=== PATIENT | female | born 1950 | race Caucasian/White ===

== ENCOUNTER 2017-04-24 18:58 | Inpatient (IN) | payer OTHER ==
[2017-04-24] MEDS ORDERED: PIPERACILLIN/TAZO 3.375 GM/DEX 50 ML IV ONE (19:55)
[2017-04-24] MEDS ORDERED: NS 1,000 ML IV ONE (19:58)
--- NOTE | 2017-04-24 19:58 | EDPHY ---
H & P Time Seen by Provider: 04/24/17 19:12 HPI/ROS: CHIEF COMPLAINT: Abnormal CT HISTORY OF PRESENT ILLNESS: Patient is a 66-year-old female who presents to the emergency department with URI type symptoms since February. She has had an ongoing cough. She was treated with a Z-Jakob and completed the course roughly 5 days ago. She states her symptoms did improve after taking the antibiotic but now they are worsening. She has had a fever with chills. She has had night sweats. Patient denies any chest pain. Her cough is nonproductive. No nausea or vomiting. Patient has a remote history of breast cancer in 1999 which require lumpectomy. REVIEW OF SYSTEMS: My complete review of systems is negative except as mentioned in the HPI. Past Medical/Surgical History: Includes breast cancer, migraine, cataracts Past surgical history: Includes abdominal surgery, right hip surgery, lumpectomy, cataract surgery Social history: The patient has a history of smoking cigarettes. Smoking Status: Former smoker Physical Exam: 36.9, 128/77, 81, 16, 94% on room air GENERAL: No acute distress, alert. HEENT: Eyes normal to inspection, normal pharynx, no signs of dehydration. NECK: No thyromegaly, no lymphadenopathy, supple. RESPIRATORY: Decreased breath sounds on the right. No rales or rhonchi. CVS: Regular rate and rhythm, no rubs, murmurs, or gallops. ABDOMEN: Soft, nontender, nondistended, no organomegaly. BACK: Normal to inspection, no CVA tenderness. SKIN: Normal color, no rash, warm, dry. No pallor. EXTREMITIES: No pedal edema, no calf tenderness, no Homans sign or cords, no joint swelling. NEURO/PSYCH: Alert and oriented, normal mood and affect, normal motor sensory exam. Constitutional: Initial Vital Signs Temperature (C) 36.9 C 04/24/17 19:02 Heart Rate 81 04/24/17 19:02 Respiratory Rate 16 04/24/17 19:02 Blood Pressure 128/77 H 04/24/17 19:02 O2 Sat (%) 94 04/24/17 19:02 Allergies/Adverse Reactions: Sulfa (Sulfonamide Antibiotics) Allergy (Verified 04/24/17 19:05) Home Medications: Medication Instructions Recorded Nadolol [Nadolol 20 mg (*)] 40 mg PO HS 07/28/15 Nortriptyline HCl [Pamelor 25 mg 75 mg PO HS 07/28/15 (*)] Acetaminophen [Tylenol 325mg (*)] 650 mg PO Q6 PRN #0 tab 07/30/15 Nicotine [Nicoderm Cq 21 mg (*)] 21 mg TD DAILY #1 box 07/30/15 Herbals/Supplements -Info Only 1 ea PO HS 04/24/17 Medical Decision Making ED Course/Re-evaluation: In the emergency department I reviewed the patient's CT imaging as an outpatient. I discussed the case with Dr. Kuhn. I discussed the findings with the patient. I answered all her questions. IV was placed. Laboratory studies including cultures were obtained. Discussed the case with Dr. Stout who accepted the patient. He recommended the patient be treated with Zosyn. Zosyn was ordered. Patient was given 1 L of normal saline. I discussed the plan with the patient. I answered all of their questions. [place] [address]. Lactic acid was 2.5. Severe sepsis was declared. The patient was given normal saline 30 milliliters/ kilogram IV over 6 hours. Differential Diagnosis: My differential includes but is not limited to pneumonia, empyema, abscess, malignancy, mass, bacteremia, sepsis - Data Points Laboratory Results: Laboratory Results 04/24/17 19:30 04/24/17 19:30 04/24/17 04/24/17 04/24/17 19:30 19:30 19:30 WBC RBC Hgb Hct MCV MCH MCHC RDW Plt Count MPV Neut % (Auto) Lymph % (Auto) Hooker % (Auto) Eos % (Auto) Baso % (Auto) Nucleat RBC Rel Count Absolute Neuts (auto) Absolute Lymphs (auto) Absolute Monos (auto) Absolute Eos (auto) Absolute Basos (auto) Absolute Nucleated RBC Immature Gran % Immature Gran # Platelet Estimate Smear Review By PT 15.0 SEC SEC (12.0-15.0) INR 1.18 H (0.83-1.16) APTT 42.6 SEC H SEC (23.0-38.0) VBG Lactic Acid 2.5 mmol/L H mmol/L (0.7-2.1) Sodium 133 mEq/L L mEq/L (134-144) Potassium 3.9 mEq/L mEq/L (3.5-5.2) Chloride 95 mEq/L L mEq/L (97-110) Carbon Dioxide 22 mEq/l mEq/l (22-31) Anion Gap 16 mEq/L mEq/L (8-16) BUN 12 mg/dL mg/dL (7-23) Creatinine 0.7 mg/dL mg/dL (0.6-1.0) Estimated GFR > 60 Glucose 145 mg/dL H mg/dL (70-100) Calcium 8.9 mg/dL mg/dL (8.5-10.4) Total Bilirubin 0.4 mg/dL mg/dL (0.1-1.4) Conjugated Bilirubin 0.3 mg/dL mg/dL (0.0-0.5) Unconjugated Bilirubin 0.1 mg/dL mg/dL (0.0-1.1) AST 29 IU/L IU/L (14-46) ALT 32 IU/L IU/L (9-52) Alkaline Phosphatase 211 IU/L H IU/L (38-126) Total Protein 6.5 g/dL g/dL (6.3-8.2) Albumin 2.9 g/dL L g/dL (3.5-5.0) 04/24/17 19:30 WBC 31.96 10^3/uL H 10^3/uL (3.80-9.50) RBC 3.42 10^6/uL L 10^6/uL (4.18-5.33) Hgb 10.3 g/dL L g/dL (12.6-16.3) Hct 29.7 % L % (38.0-47.0) MCV 86.8 fL fL (81.5-99.8) MCH 30.1 pg pg (27.9-34.1) MCHC 34.7 g/dL g/dL (32.4-36.7) RDW 13.9 % % (11.5-15.2) Plt Count 956 10^3/uL H 10^3/uL (150-400) MPV 9.1 fL fL (8.7-11.7) Neut % (Auto) Not Reported Lymph % (Auto) Not Reported Hooker % (Auto) Not Reported Eos % (Auto) Not Reported Baso % (Auto) Not Reported Nucleat RBC Rel Count 0.0 % % (0.0-0.2) Absolute Neuts (auto) Not Reported Absolute Lymphs (auto) Not Reported Absolute Monos (auto) Not Reported Absolute Eos (auto) Not Reported Absolute Basos (auto) Not Reported Absolute Nucleated RBC 0.00 10^3/uL 10^3/uL (0-0.01) Immature Gran % Not Reported Immature Gran # Not Reported Platelet Estimate Pending Smear Review By Pending PT INR APTT VBG Lactic Acid Sodium Potassium Chloride Carbon Dioxide Anion Gap BUN Creatinine Estimated GFR Glucose Calcium Total Bilirubin Conjugated Bilirubin Unconjugated Bilirubin AST ALT Alkaline Phosphatase Total Protein Albumin Medications Given: Discontinued Medications Piperacillin/Tazobactam/Dextrose (Zosyn 3.375 Gm (Premix)) 50 mls @ 100 mls/hr IV ONCE ONE PRN Reason: Protocol Stop: 04/24/17 20:24 Last Admin: 04/24/17 20:12 Dose: 50 mls Sodium Chloride (Ns) 1,000 mls @ 0 mls/hr IV ONCE ONE PRN Reason: Wide Open Stop: 04/24/17 19:59 Last Admin: 04/24/17 20:07 Dose: 1,000 mls Departure - Departure Disposition: [facility] Inpatient Acute Clinical Impression: Empyema lung, Severe sepsis Condition: Fair
[2017-04-24 19:59] LABS: ADD MORPH? NO; ATYPICAL LYMPHOCYTE FLAG 20 (0-99); FRAGMENT RBC FLAG 0 (0-99); HEMATOCRIT 29.7 % (38.0-47.0); HEMOGLOBIN 10.3 g/dL (12.6-16.3); LEFT SHIFT FLG 30 (0-99); LIPEMIA HEMOLYSIS FLAG 90 (0-99); MEAN CELL HEMOGLOBIN 30.1 pg (27.9-34.1); MEAN CELL HEMOGLOBIN CONCENTR. 34.7 g/dL (32.4-36.7); MEAN CELL VOLUME 86.8 fL (81.5-99.8); MEAN PLATELET VOLUME 9.1 fL (8.7-11.7); PLATELET CLUMPS FLAG 0 (0-99); RED BLOOD CELL COUNT 3.42 10^6/uL (4.18-5.33); RED CELL DISTRIBUTION WIDTH 13.9 % (11.5-15.2)
[2017-04-24 20:00] LABS: PLATELET COUNT 956 10^3/uL (150-400)
[2017-04-24 20:01] LABS: INR 1.18 (0.83-1.16)
[2017-04-24 20:02] LABS: APTT 42.6 SEC (23.0-38.0)
[2017-04-24 20:11] LABS: ALANINE AMINOTRANSFERASE 32 IU/L (9-52); ALBUMIN 2.9 g/dL (3.5-5.0); ALKALINE PHOSPHATASE 211 IU/L (38-126); ANION GAP 16 mEq/L (8-16); ASPARTATE AMINOTRANSFERASE 29 IU/L (14-46); BILIRUBIN,TOTAL 0.4 mg/dL (0.1-1.4); BILIRUBIN-CONJUGATED 0.3 mg/dL (0.0-0.5); BILIRUBIN-UNCONJUGATED 0.1 mg/dL (0.0-1.1); CALCIUM 8.9 mg/dL (8.5-10.4); CARBON DIOXIDE 22 mEq/l (22-31); CHLORIDE 95 mEq/L (97-110); CREATININE 0.7 mg/dL (0.6-1.0); GLOMERULAR FILTRATION RATE > 60; GLUCOSE 145 mg/dL (70-100); POTASSIUM 3.9 mEq/L (3.5-5.2); SODIUM 133 mEq/L (134-144); TOTAL PROTEIN 6.5 g/dL (6.3-8.2)
[2017-04-24] MEDS ORDERED: NS 2,000 ML IV ONE (20:48)
[2017-04-24 20:54] LABS: HYPOCHROMIA 2+; MACROCYTES 1+; MICROCYTES 2+; PLATELET ESTIMATE INCREASED (ADEQ); POLYCHROMASIA 1+
[2017-04-24 23:07] LABS: ADD DIFF? YES; ADD SCAN? NO
[2017-04-24] MEDS ORDERED: ONDANSETRON 4 MG/2 ML VIAL IVP PRN (23:17)
[2017-04-24] MEDS ORDERED: HYDROCODONE/APAP 5/325 TAB PO PRN (23:17)
[2017-04-24] MEDS ORDERED: LORazepam 0.5 MG TAB PO PRN (23:17)
[2017-04-24] MEDS ORDERED: D5W 1/2 NS W/ 20 KCl/L 1,000 ML IV SCH (23:30)
[2017-04-25] MEDS: PIPERACILLIN/TAZO 3.375 GM/DEX 50 ML IV SCH ×3 (01:40→11:44)
--- NOTE | 2017-04-25 03:57 | GHP ---
[f rep st] HISTORY AND PHYSICAL DATE OF ADMISSION: 04/24/2017 SOURCE: Patient provides history, appears reliable. Daughter at bedside and supplements details. HISTORY OF PRESENT ILLNESS: This is a very pleasant 66-year-old female with past medical history significant for migraine headaches, breast cancer in remission since 2007, and otherwise healthy, who presents to the emergency department today with complaints of worsening cough since end of February. Patient reports she developed viral URI symptoms with rhinorrhea, congestion at the end of February. She subsequently developed worsening cough and was diagnosed with pneumonia. Her PCP prescribed azithromycin, and patient initially reports that she was feeling better. However after completion of her antibiotics, patient states that she started to feel worse. Patient continued to have significant productive cough of green sputum. She had significantly decreased appetite, fatigue, and lethargy and would sleep most of the day. Patient also reports increased significant weight loss, but cannot quantify. She also has noted significant swings in temperature and subjective fevers, chills, and dripping sweats, mostly at night. Patient without any other sick contacts. No recent travel in the last 2 months, either in or out of the country. No increased risk for exposures to TB. Throughout the entirety of her illness, patient denies any shortness of breath, chest pain, palpitations, nausea, vomiting, diarrhea. REVIEW OF SYSTEMS: GENERAL: Positive for fevers, chills, and sweats. SKIN: Patient denies any rashes or sores. ENT: Patient with persistent rhinorrhea since initial onset of illness end of February. No sore throat. EYES: Patient denies any acute changes in vision. Does wear readers. CV: No chest pain, palpitations. RESPIRATORY: Productive cough as noted above. No shortness of breath. GI: Decreased appetite. No nausea, vomiting, diarrhea, or abdominal pain. : No dysuria or hematuria. MUSCULOSKELETAL: Chronic right hip pain. Myalgias diffusely. NEURO: Patient denies any increase in headache frequency. No numbness, tingling, or focal weakness. PSYCH: Patient reports some decreased mood since becoming ill. Denies any SI or HI. Remainder ROS negative except as noted above. ALLERGIES: Sulfa. HOME MEDICATIONS: Nadolol 40 mg p.o. q.h.s., nortriptyline 75 mg at h.s., Tylenol p.r.n., NicoDerm p.r.n., and vitamin D. PAST MEDICAL HISTORY: Significant for breast cancer in remission, status post lumpectomy and oral chemo since 2007, migraine headaches, cataract surgery. PAST SURGICAL HISTORY: Right hip ORIF, lumpectomy, cataract surgery bilaterally , abdominal surgery for a bleeding gastric ulcer related to NSAID use many years ago, colonoscopy. FAMILY HISTORY: Significant for father with lymphoma, brother with lung cancer , mother and father in their 80s. SOCIAL HISTORY: Patient quit smoking, but has been using NicoDerm patches. No alcohol or drug use. CODE STATUS: Full. PHYSICAL EXAMINATION: VITAL SIGNS: Initial on arrival to the ED, blood pressure 128/77, heart rate 81, temperature 36.9, respiratory rate 16, O2 saturation 94% on room air. patient with 1 noted episode of hypoxia to 84% on room air. GENERAL: No acute distress, pleasant, acutely ill-appearing female, who is sitting up in bed. She does not appear toxic, but is flushed. Daughter at bedside. HEAD: Normocephalic, atraumatic. EYES: Extraocular muscles intact. Pupils equal, round. Slightly decreased reactivity to light bilaterally, but symmetric. No scleral icterus or conjunctival injection. ENT : Mucous membranes appear moist. No oropharyngeal erythema or exudates. NECK : Supple. Trachea midline. CV: Tachycardic in the low 90s with a regular rhythm. No murmurs, rubs, or gallops appreciated. RESPIRATORY: Lungs with significantly diminished air movement in the right lung dixon, decreased on the left. No wheezes, rales, or rhonchi appreciated. Patient without any increased work of breathing. ABDOMEN: Positive bowel sounds. Soft, nontender to palpation. No rebound, guarding, or masses appreciated. : No suprapubic tenderness to palpation. No Edward in place. EXTREMITIES: Patient without any cyanosis, clubbing, or edema appreciated. Less than 3 second capillary refill. NEURO: Cranial nerves 2-12 intact, symmetric bilaterally. Patient is awake, alert, and oriented x3. Moves all extremities. Strength grossly normal in upper and lower extremities. PSYCH: Patient's affect slightly flat, slightly slowed responses, but otherwise appropriate. LABORATORY DATA: WBC is 31.96, H and H 10.3 and 29.7, MCV 86.8, platelet count is 956. Absolute segmented neutrophils 24.6. No granulocytes reported. PT 15.0, INR 1.18, PTT is 42.6. VBG lactic acid 2.5, improved to 2.0 on repeat. Sodium is 133, potassium is 3.9, chloride 95, CO2 is 22, BUN is 12, creatinine 0.7, GFR greater than 60, glucose 145, calcium 8.9. Total bilirubin 0.4, ALT 32, AST 29, alkaline phosphatase 211, total protein 6.5, albumin 2.9. Blood cultures x2 pending. Sinus swab pending. IMAGING DATA: 1. Completed outpatient chest x-ray: Image and report reviewed by me, showing dense right upper lobe pneumonia versus postobstructive atelectasis due to a central right hilar lesion. Recommend CT chest. No effusion noted. 2. CT chest: Dense anterior right upper lobe consolidation contains multiple abscesses. Extensive right hilar mediastinal right subarticular lymphadenopathy may be reactive. Greater than 70% stenosis proximal left subclavian artery. Correlate clinically for subclavian steal syndrome. Nonspecific prominence of the common bile duct to 0.7 cm. ASSESSMENT AND PLAN: Pleasant 66-year-old female with a history of migraine headaches and a remote history of breast cancer, who presents to the emergency department with complaints of worsening shortness of breath, fevers, chills, and sweats. 1. Right upper lobe abscess and pneumonia. Patient status post a several week course of symptoms and completion of oral azithromycin, now with multiple abscesses and associated atelectasis in the right upper lobe. Patient's antibiotic broadened to include Zosyn. Patient is currently stable. Pulmonology consultation in the morning for further recommendations, intervention. 2. Severe sepsis with leukocytosis, elevated lactate. Patient has received appropriate IV fluid bolus in the emergency department. Will continue with aggressive IV fluid hydration. 3. Leukocytosis secondary to pulmonary abscesses. Antibiotics and therapy as noted above. 4. Anemia. Baseline H and H unknown at this time. Patient without any evidence of active bleeding, but possibly related to her acute illness. Will continue to monitor. 5. Thrombocytosis, likely reactive in setting of infection. Antibiotics and plan as noted above. 6. Hyponatremia, likely related to some hypovolemia. Blood pressures at this time are acceptable. Continue with IV fluid hydration and monitor BMP in the morning. 7. Hypochloridemia in setting of hyponatremia. Will plan to repeat BMP after IV fluid hydration. 8. Hyperglycemia, nonfasting lab. Patient without history of diabetes. Will continue to monitor. 9. Elevated lactate, improved and normalized after IV fluid bolus in the emergency department. No need to repeat serial lactates at this time. 10. Hypoalbuminemia, likely related to her acute illness. Will plan to continue to monitor clinically. Treatment as above. 11. Fluids, electrolytes, and nutrition. Continue with aggressive IV fluid hydration, electrolyte replacement if needed, and patient will be given a diet and then made n.p.o. after midnight pending further evaluation and recommendations for intervention. 12. Prophylaxis. SCDs. Holding anticoagulation for possible procedure. 13. Code status. Full. DISPOSITION: Patient admitted to inpatient status on the medical floor at this time given severity of her illness and need for further intervention. Anticipate more than 2-midnights stay. /[id number]/MODL MTDD
[2017-04-25 06:02] LABS: % IMMATURE GRANULYOCYTES 0.9 % (0.0-1.1); ABSOLUTE IMMATURE GRANULOCYTES 0.22 10^3/uL (0.00-0.10); ADD DIFF? NO; ADD MORPH? NO; ADD SCAN? NO; ATYPICAL LYMPHOCYTE FLAG 0 (0-99); FRAGMENT RBC FLAG 0 (0-99); HEMATOCRIT 28.4 % (38.0-47.0); HEMOGLOBIN 9.5 g/dL (12.6-16.3); LEFT SHIFT FLG 20 (0-99); LIPEMIA HEMOLYSIS FLAG 80 (0-99); MEAN CELL HEMOGLOBIN 29.6 pg (27.9-34.1); MEAN CELL HEMOGLOBIN CONCENTR. 33.5 g/dL (32.4-36.7); MEAN CELL VOLUME 88.5 fL (81.5-99.8); MEAN PLATELET VOLUME 9.4 fL (8.7-11.7); PLATELET CLUMPS FLAG 10 (0-99); RED BLOOD CELL COUNT 3.21 10^6/uL (4.18-5.33); RED CELL DISTRIBUTION WIDTH 14.1 % (11.5-15.2)
[2017-04-25 06:04] LABS: INR 1.23 (0.83-1.16); PROTIME(PATIENT) 15.5 SEC (12.0-15.0)
[2017-04-25 06:05] LABS: APTT 39.1 SEC (23.0-38.0)
[2017-04-25 06:12] LABS: ALANINE AMINOTRANSFERASE 30 IU/L (9-52); ALBUMIN 2.3 g/dL (3.5-5.0); ALKALINE PHOSPHATASE 172 IU/L (38-126); ANION GAP 11 mEq/L (8-16); ASPARTATE AMINOTRANSFERASE 25 IU/L (14-46); BILIRUBIN,TOTAL 0.4 mg/dL (0.1-1.4); CALCIUM 8.4 mg/dL (8.5-10.4); CARBON DIOXIDE 26 mEq/l (22-31); CHLORIDE 105 mEq/L (97-110); CREATININE 0.7 mg/dL (0.6-1.0); GLOMERULAR FILTRATION RATE > 60; GLUCOSE 116 mg/dL (70-100); POTASSIUM 4.3 mEq/L (3.5-5.2); SODIUM 142 mEq/L (134-144); TOTAL PROTEIN 5.7 g/dL (6.3-8.2)
[2017-04-25 06:13] LABS: PLATELET COUNT 872 10^3/uL (150-400)
[2017-04-25 06:53] LABS: PLATELET ESTIMATE INCREASED (ADEQ)
[2017-04-25] MEDS: ACETAMINOPHEN 325 MG TAB PO PRN (08:30)
--- NOTE | 2017-04-25 09:30 | PDMN ---
Medical Necessity Medical necessity: M160 sepsis and other febrile illness- suspected or identified infection- RUL abscess and PNA, mult. abscesses and assoc. atelectasis. Failed outpt tx., leukocytosis, elevated lactate., anemia, thrombocytosis, hyponatremia IV fluids, IV abx, electrolyte replacement needed. O2 monitoring O2 sats 84-93% RA., Anticipate > 2 midnights further monitoring and tx.
[2017-04-25] MEDS: NS 1,000 ML IV SCH ×2 (09:39→23:33)
[2017-04-25] MEDS: NICOTINE 21 MG/24 HR PATCH TD SCH (09:40)
--- NOTE | 2017-04-25 16:56 | ASMTCMCOM ---
CM Note CM Note Notes: Pt cleared by PT/OT, anticipate will dc home w/support of daughter who lives with her when medically stable. CM available for any changes. Date Signed: 04/25/2017 04:56 PM Electronically Signed By:Yelitza Chaney RN
--- NOTE | 2017-04-25 17:45 | GCON ---
[f rep st] CONSULTATION PULMONARY CONSULTATION DATE OF CONSULTATION: 04/25/2017 HISTORY OF PRESENT ILLNESS: This patient is a 66-year-old female who has a very remote history of br east cancer and lumpectomy, but has been disease-free since at least 2007, if not longer; who present ed to outpatient primary care physician with unresolved upper respiratory infection. This started in February 2017 with classic URI symptoms, eventually was treated with azithromycin and that had impr josé miguel her symptoms, but she started to get worse again. She subsequently over the last couple of week s has developed a cough productive of green sputum without hemoptysis but accompanied with fevers, ch ills, and sweats. She has also had weight loss and ongoing rhinorrhea. A chest x-ray showed a dense pneumonia, and CT scan showed dense consolidation in the right upper lobe with probable abscesses, a nd a lactate of 2.5. She was subsequently admitted to the hospital with a T-max of 38.2 and found to have a white count of 32,000. She started treatment with Zosyn, and Pulmonary consult was requested . REVIEW OF SYSTEMS: She says she is not really having any chest pain and no shortness of breath. The re has been no hemoptysis over this period of time. Up until recently, her weight and appetite have been normal. She is an ongoing smoker but is not known to have COPD. The rest of her review of syst ems is otherwise negative. PAST MEDICAL HISTORY: Cataracts, upper respiratory infection, gastroesophageal reflux disease, gastr ic ulcer in the past requiring surgery, migraines, breast cancer, sinusitis, skin cancer, vaginitis, and a femur fracture. PAST SURGICAL HISTORY: Includes cataracts, lumpectomy, a laparotomy, and open reduction, internal fi xation of her right hip. SOCIAL HISTORY: As I said, she is an ongoing smoker though she told me she quit today. No alcohol o r IV drug use. FAMILY HISTORY: Includes hypertension and lymphoma. CURRENT MEDICATIONS: Include [place], Unasyn, Dilaudid, Ativan, nadolol, NicoDerm, nortriptyline, Zofr an and normal saline. PHYSICAL EXAMINATION: VITAL SIGNS: She had a T-max of 38.2, but was afebrile at the time of my exam . Blood pressure 130/77, heart rate 92, normal sinus rhythm, respiration 19, oxygen saturation 90% t o 92% on room air. GENERAL: She was a pleasant woman in no apparent distress. Able to speak in ful l sentences without using accessory muscles for breathing. HEENT: Pupils equally round and reactive to light. Nonicteric and noninjected. Mucous membranes moist without erythema or exudate, though s he did appear to have some thrush on her tongue. Her teeth were quite yellow. She had multiple fill ed cavities, but no obvious dental abscesses. NECK: Supple without adenopathy or jugular vein diste ntion. CHEST: Breath sounds were remarkably clear to auscultation bilaterally without wheezes, rubs or rales. HEART: Regular rate and rhythm without obvious murmurs. ABDOMEN: Soft, nontender, nond istended without hepatosplenomegaly. EXTREMITIES: No clubbing, cyanosis, or edema. NEUROLOGIC: No nfocal, including cranial nerves, deep tendon reflexes. SKIN: Warm and dry without evidence of rash . OBJECTIVE DATA: Includes a white count which was initially 32,000, dropped to 24, and a hematocrit o f 28, platelets of 872, which have improved. Basic metabolic panel was unremarkable. Her CT scan sh owed dense consolidation in the right upper lobe with 2 large hypodensities adjacent to 1 another in this region without air-fluid levels. There was also adenopathy but no obvious endobronchial lesions . ASSESSMENT AND PLAN: Likely, pulmonary abscesses, perhaps related to a postviral bacterial infection . She is getting antibiotics and has been seen by Dr. Johnston, who reviewed the films with me as well. I do not believe she needs bronchoscopy at this time. My suspicion for malignancy is really quite l ow. Needle aspirates from the pulmonary abscesses are often fraught with difficulty and worsening sc enario, including worsening pneumonias and empyema, so I do not believe that a needle aspirate is ind icated at this time. I would treat her with antibiotics and observation, but she may be able to leav e the hospital fairly soon. After 4 weeks, she should have a re-evaluation including a CT scan unles s things get worse between now and then. My expectation is she should improve during that period of time. /[id number]/MODL
--- NOTE | 2017-04-25 17:46 | HOSPPROG ---
Hospitalist Progress Note Assessment/Plan: Assessment: 66-year-old female presents with acute pulmonary abscess Plan: 1. Pulmonary abscess. Acute, new problem this provider, further workup indicated. Located in the right upper lobe on chest CT imaging, personally interpreted, likely the result of effectively treated pneumonia with central necrosis and liquefaction -discussed with Dr. Manish Johnstno and Dr. Flako Alvarez, they do not recommend bronchoscopy or IR biopsy at this time, recommend empiric treatment with IV antibiotics and gauge effect -continue to monitor CBC, severe leukocytosis, continue monitor fever curve -antibiotics adjusted from Zosyn to Unasyn -respiratory viral panel negative -sputum culture sent emergency department, it Gram stain and culture currently pending 2. Acute metabolic acidosis. Lactic acid 2.5 on presentation, likely secondary to hypovolemia hypoperfusion in the setting of infection, received IV fluids, normalized 3. Atelectasis. Acute, present on chest imaging, likely secondary to compression from infection outlined above, give incentive spirometer 4. Subclavian stenosis. Right-sided, approximately 70% on chest CT, potentially secondary to compression from above, re-evaluate any symptoms of subclavian steal if they occur with CT angiography Diet. Regular Prophylaxis. High risk patient, Lovenox 40 Code. Full Disposition. Anticipated discharge uncertain, pending clinical stability of above. Subjective: Patient reports that she continues to experience general malaise Objective: Vital Signs Temp Pulse Resp BP Pulse Ox 37.1 C 77 20 105/53 L 94 04/25/17 15:58 04/25/17 16:13 04/25/17 15:58 04/25/17 15:58 04/25/17 16:13 Microbiology 04/25/17 06:30 - Final Sputum, Expectorated Laboratory Results 04/25/17 05:11 04/25/17 05:11 04/24/17 04/25/17 04/26/17 05:59 05:59 05:59 Intake Total 2500 Balance 2500 PT 15.5 SEC (12.0-15.0) H 04/25/17 05:11 INR 1.23 (0.83-1.16) H 04/25/17 05:11 - Pending Discharge Pending Discharge Within 48 Hours: Yes Pending Discharge Date: 04/27/17 Pending Discharge Time: 11:00 - Physical Exam Constitutional: no apparent distress, not in pain, chronically ill appearing, uncomfortable Cardiovascular: regular rate and rhythym, no murmur, rub, or gallop, No tachycardia, No edema Respiratory: reduced air movement (Right base), other (No egophony but reduced audible sounds in right base), No expiratory wheeze, No bronchial breath sounds , No respiratory distress Gastrointestinal: normoactive bowel sounds, soft, non-tender abdomen, no palpable masses Neurologic: AAOx3, sensation intact bilaterally, No weakness Psychiatric: interacting appropriately, not anxious, not encephalopathic, flat affect, No agitated ICD10 Worksheet Patient Problems: Problems Problem Status Onset Fracture of femoral neck, right, closed Acute History of breast cancer in female Chronic History of skin cancer of unknown type Chronic Tobacco abuse Acute Migraine Chronic Empyema lung Acute Severe sepsis Acute
--- NOTE | 2017-04-25 18:06 | GCON ---
[f rep st] CONSULTATION DATE OF CONSULTATION: 04/25/2017 REQUESTING PHYSICIAN: Dick Diaz MD REASON FOR CONSULTATION: Pneumonia with possible lung abscess. HISTORY OF PRESENT ILLNESS: Patient is a 66-year-old female with a past medical history of breast ca ncer several years ago in remission, who I am asked to see in consultation for right upper lobe pneum onia with concern for abscess formation. The patient describes developing URI symptoms in late . These were characterized by cough and sinus congestion. Over the ensuing month, she had progr essive cough and developed fever with chills but no rigors. She did not describe having any night sw eats. Approximately 2 weeks ago, she was prescribed azithromycin and notes that this led to transien t improvement but did not resolve her symptoms. She describes her cough as being productive of green or clear sputum. At times, this has been sticky. She has noted a "sickly" odor to herself, but no foul-smelling sputum or halitosis. She does describe having weight loss due to decreased appetite du ring this time frame. She notes her temperature has gone as high as 103. No ill contacts. Patient has not had influenza vaccine this season. No recent travel history. There are pet cats at home whi ch are indoor cats. No exposure to animal carcasses such as rabbits or squirrels. No known his tory of exposure to tuberculosis. Based on her symptoms not resolving with azithromycin, she underwe nt further evaluation yesterday with chest x-ray which showed dense right upper lobe consolidation. CT scan was subsequently performed which showed dense right upper lobe consolidation with 2 areas of hypodensity within the consolidation measuring 4.5 x 3.7 cm and 3.2 x 2.6 cm which appear b y septum. No air-fluid level is present. This study also noted 70% stenosis of the proximal left woodson bclavian artery. The patient was started empirically on Zosyn based on the above findings. She sahil es any HIV risk factors. She has not had recent dental problems or dental work. No episodes of loss of consciousness. She also has smoked 1/2 pack per day for 20 years. Given the above findings, I a m now asked to assist in her ongoing management. PAST MEDICAL HISTORY: Breast cancer treated with lumpectomy, radiation, and hormonal therapy; migrai shell. PAST SURGICAL HISTORY: Lumpectomy, surgery for bleeding gastric ulcer (did not require splenectomy), right hip ORIF for fracture after fall. CURRENT MEDICATIONS: Zosyn 3.375 g IV q.6 hours, [place] as needed, Ativan as needed, NicoDerm CQ 21 m g patch daily, nortriptyline 75 mg p.o. q.h.s. ALLERGIES: Sulfonamides associated with diffuse erythema. SOCIAL HISTORY: Patient has smoked 1/2 pack per day x20 years. No alcohol or drug use. REVIEW OF SYSTEMS: Outside that noted in the HPI, the remainder of 10-system review is unremarkable. Patient did have a colonoscopy prior to onset of symptoms but did not have any nausea or vomiting a ssociated with prep. PHYSICAL EXAMINATION: VITAL SIGNS: Temperature maximum 38.2, temperature current 37.0, heart rate 8 2, respiratory rate 19, blood pressure 95/55, oxygen saturation 92% on room air. GENERAL: Patient i s a thin female in no acute distress. She appears nontoxic. HEENT: There is no scleral icterus, co njunctival injection, or conjunctival petechiae. Oropharynx shows dry mucous membranes. Dentition i s in fair repair. There is no nasal discharge. There is no tenderness over the frontal, maxillary o r mastoid area. NECK: Supple without palpable lymphadenopathy or thyromegaly. CHEST: Clear to aus cultation without adventitious sounds. Respiratory effort is normal. CARDIOVASCULAR: Regular rate and rhythm without murmurs, gallops, or rubs. ABDOMEN: Soft, nontender, nondistended. There is no palpable organomegaly. Bowel sounds are present. MUSCULOSKELETAL: There is no cyanosis, clubbing, or edema. SKIN: No rashes present. No stigmata of endocarditis. Skin is warm and dry to touch. T here is some peeling skin over the right middle finger, which has been present for approximately 2 ye ars. NEUROLOGIC: Patient is alert and interacts appropriately with examiner. Cranial nerves 2-12 a re grossly intact. Sensation is grossly intact. Muscle tone and bulk are normal. LYMPHATICS: No c ervical or supraclavicular nodes palpable. LABORATORY DATA: White blood cell count at time of presentation 31.9, white blood cell count today 2 4.5, hematocrit 28.4, platelets 872, neutrophils 71%, lymphocytes 19%. Serum creatinine 0.7. AST 25 , ALT 30, bilirubin 0.4, alkaline phosphatase 172, albumin 2.3. INR 1.2. Venous lactate 2.0. Blood cultures x2 sets pending. Respiratory pathogen panel shows no organisms. Sputum sample shows 4+ wh ite blood cells with 3+ gram-positive cocci, 2+ gram-positive rods, and 2+ yeast. Chest x-ray and CT scan as outlined above which were reviewed and interpreted by me today. IMPRESSION: Right upper lobe pneumonia with early abscess formation/possible element of necrotizing pneumonia: Most likely this will be due to mixed oral deon including anaerobic organisms which shubham elate with Gram stain. Other consideration would be that this is related to Streptococcus pneumoniae or Staphylococcus aureus. Gram-negative organisms also of consideration which would be associated w ith community-acquired pneumonia although suspect these will be less likely. The patient does not cabrera ve any significant risk factors for pseudomonas. The patient is a long-term smoker which will need t o be kept in mind in the event she does not show any improvement. CT scan does not show any overtly obstructive lesions. RECOMMENDATIONS: 1. Unasyn 3 g IV q.6 hours. 2. Discontinue Zosyn. 3. Follow up sputum and blood cultures as available. 4. Check urine Streptococcus pneumoniae antigen. 5. Follow clinical response to above measures. Typically these can be treated with antibiotic thera py alone without need to undergo aspiration which in this setting can be associated with increased ri sk of bronchopleural fistula formation. Thank you for this consultation. We will continue to follow the patient with you. /[id number]/MODL
[2017-04-25] MEDS: AMPICILLIN/SULBACTAM 3 GM in NS 100 ML IV SCH ×2 (18:30→23:29)
[2017-04-25] MEDS: NORTRIPTYLINE HCL 25 MG CAP PO SCH (20:51)
[2017-04-25] MEDS: NADOLOL 20 MG TAB PO SCH (20:51)
[2017-04-25] MEDS ORDERED: Herbals/Supplements -Info Only PO SCH (21:00)
[2017-04-26] MEDS: AMPICILLIN/SULBACTAM 3 GM in NS 100 ML IV SCH ×4 (05:11→23:30)
[2017-04-26 05:27] LABS: % IMMATURE GRANULYOCYTES 0.9 % (0.0-1.1); ABSOLUTE IMMATURE GRANULOCYTES 0.18 10^3/uL (0.00-0.10); ADD DIFF? NO; ADD MORPH? NO; ADD SCAN? NO; ATYPICAL LYMPHOCYTE FLAG 0 (0-99); FRAGMENT RBC FLAG 0 (0-99); HEMATOCRIT 25.8 % (38.0-47.0); HEMOGLOBIN 8.7 g/dL (12.6-16.3); LEFT SHIFT FLG 20 (0-99); LIPEMIA HEMOLYSIS FLAG 80 (0-99); MEAN CELL HEMOGLOBIN CONCENTR. 33.7 g/dL (32.4-36.7); MEAN PLATELET VOLUME 9.2 fL (8.7-11.7); PLATELET CLUMPS FLAG 0 (0-99); RED CELL DISTRIBUTION WIDTH 14.5 % (11.5-15.2)
[2017-04-26 05:32] LABS: PLATELET COUNT 853 10^3/uL (150-400)
[2017-04-26 05:38] LABS: ANION GAP 12 mEq/L (8-16); CALCIUM 7.8 mg/dL (8.5-10.4); CARBON DIOXIDE 22 mEq/l (22-31); CHLORIDE 107 mEq/L (97-110); CREATININE 0.6 mg/dL (0.6-1.0); GLOMERULAR FILTRATION RATE > 60; GLUCOSE 90 mg/dL (70-100); SODIUM 141 mEq/L (134-144)
[2017-04-26 06:11] LABS: PLATELET ESTIMATE INCREASED (ADEQ)
--- NOTE | 2017-04-26 09:22 | PCMIDPN ---
Assessment/Plan: 1. Right upper lobe necrotizing pneumonia with concomitant abscess formation: Suspect the patient will need a course of IV therapy, and then can transition to oral Augmentin versus other given extent of consolidation. Agree with Dr. Johnston that this is most likely polymicrobial in nature, and that other entities such as fungi, and tuberculosis seem unlikely. Cancer also seems less likely given the patient's clinical presentation. For now, will continue Unasyn. May need to transition to intravenous ertapenem for ease of administration upon discharge. 04/26/17 09:22 Subjective: Still feels very tired and weak. No diarrhea on the antibiotics. Coughing, but not productive today. States that she stopped smoking last week. Objective: Unasyn 3 g IV q.6 hours day 1 90% on room air T-max 37.7degrees Vital Signs Temp Pulse Resp BP Pulse Ox 36.9 C 85 20 133/70 H 90 L 04/26/17 07:39 04/26/17 07:39 04/26/17 07:39 04/26/17 07:39 04/26/17 07:39 Microbiology 04/25/17 06:30 - Final Sputum, Expectorated Laboratory Results 04/26/17 04:29 04/26/17 04:29 04/25/17 04/26/17 04/27/17 05:59 05:59 05:59 Intake Total 2500 3117 Output Total 250 Balance 2500 2867 Blood cultures pending Sputum culture pending - Physical Exam General Appearance: other (Looks tired. No apparent distress. Coughing.) EENT: No scleral icterus, No thrush Respiratory: other (Coarse breath right upper lobe. No wheeze. No rub.) Cardiac/Chest: regular rate, rhythm, No systolic murmur Extremities: other (Both arms are well perfused.) Abdomen: non-tender, soft Skin: No rash ICD10 Worksheet Patient Problems: Problems Problem Status Onset Empyema lung Acute Severe sepsis Acute Fracture of femoral neck, right, closed Acute Tobacco abuse Acute History of breast cancer in female Chronic History of skin cancer of unknown type Chronic Migraine Chronic
[2017-04-26] MEDS ORDERED: FLU VACC QS 2017-18 (3YR+)/PF 0.5 ML SYR (FLUARIX QUAD) IM ONE (09:24)
[2017-04-26] MEDS: NICOTINE 21 MG/24 HR PATCH TD SCH ×2 (09:32→20:08)
[2017-04-26] MEDS: NS 1,000 ML IV SCH (10:35)
--- NOTE | 2017-04-26 11:20 | ASMTCMCOM ---
CM Note CM Note Notes: Spoke w/ re; home IV infusion. Pt will need home IV abx, [facility] has no other needs. Current Discharge Plan: Pt will dc home w/Patti for home IV abx. Date Signed: 04/26/2017 11:19 AM Electronically Signed By:Yelitza Chaney RN
[2017-04-26] MEDS ORDERED: ALTEPLASE 2 MG VIAL IVP PRN (17:48)
--- NOTE | 2017-04-26 17:48 | HOSPPROG ---
Hospitalist Progress Note Assessment/Plan: Assessment: 66-year-old female presents with acute pulmonary abscess Plan: 1. Pulmonary abscess. Acute, located in the right upper lobe on chest CT imaging likely the result of effectively treated pneumonia or a post-viral PNA with central necrosis and liquefaction -ID/pulm do not recommend bronch/biopsy at this time, lengthy course of IV Abx, then PO -d/w Dr. Jefferson, cont on Unasyn but likely transition to ertapenem at discharge -get PICC line tomorrow AM -monitor WBC/fever curve, ensure improvement prior to DC 2. Acute metabolic acidosis. Lactic acid 2.5 on presentation, likely secondary to hypovolemia hypoperfusion in the setting of infection, received IV fluids, normalized 3. Atelectasis. Acute, present on chest imaging, likely secondary to compression from infection outlined above, give incentive spirometer 4. Subclavian stenosis. Right-sided, approximately 70% on chest CT, potentially secondary to compression from above, re-evaluate any symptoms of subclavian steal if they occur with CT angiography Diet. Regular Prophylaxis. High risk patient, Lovenox 40 Code. Full Disposition. Anticipated discharge uncertain, pending clinical stability of above, possibly as soon as 04/27 Subjective: patient w/ fatigue, no diarrhea Objective: Vital Signs Temp Pulse Resp BP Pulse Ox 36.9 C 91 16 99/60 L 90 L 04/26/17 16:36 04/26/17 15:13 04/26/17 15:13 04/26/17 15:13 04/26/17 16:36 Microbiology 04/25/17 06:30 - Final Sputum, Expectorated Laboratory Results 04/26/17 04:29 04/26/17 04:29 04/25/17 04/26/17 04/27/17 05:59 05:59 05:59 Intake Total 2500 3117 550 Output Total 250 Balance 2500 2867 550 PT 15.5 SEC (12.0-15.0) H 04/25/17 05:11 INR 1.23 (0.83-1.16) H 04/25/17 05:11 - Physical Exam Constitutional: no apparent distress, not in pain, chronically ill appearing, No uncomfortable Cardiovascular: regular rate and rhythym, no murmur, rub, or gallop, No edema Respiratory: reduced air movement (R mid post segment), rhonchi (R post segment) , No expiratory wheeze, No bronchial breath sounds, No respiratory distress Gastrointestinal: normoactive bowel sounds, soft, non-tender abdomen, no palpable masses Neurologic: AAOx3, No facial droop Psychiatric: interacting appropriately, not anxious, not encephalopathic, thought process linear ICD10 Worksheet Patient Problems: Problems Problem Status Onset Fracture of femoral neck, right, closed Acute History of breast cancer in female Chronic History of skin cancer of unknown type Chronic Tobacco abuse Acute Migraine Chronic Empyema lung Acute Severe sepsis Acute
--- NOTE | 2017-04-26 19:33 | PDINTPN ---
Principal Investigator Progress Note Assessment/Plan: Assessment/plan: 66 F admitted with several weeks of malaise which started with URI symmptoms. She was treated with azithromycin with initial improvement, but deteriorated. A CXR was abnormal and a chest CT revealed dense consolidation in the RUL with hypodensities consistent with abscess. There was some concern about recurrent breast cancer, so bronchoscopy was requested. * Pulmonary abscess- seen by ID. 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 BAL not indicated and needle aspirates often result in spread of disease or empyema. FU cultures. Stable for dc when cleared by IM/ID. Subjective: remains stable without O2 Objective: Vital Signs Temp Pulse Resp BP Pulse Ox 36.9 C 91 16 99/60 L 90 L 04/26/17 16:36 04/26/17 15:13 04/26/17 15:13 04/26/17 15:13 04/26/17 16:36 Microbiology 04/25/17 06:30 - Final Sputum, Expectorated Laboratory Results 04/26/17 04:29 04/26/17 04:29 04/25/17 04/26/17 04/27/17 05:59 05:59 05:59 Intake Total 2500 3117 550 Output Total 250 Balance 2500 2867 550 PT 15.5 SEC (12.0-15.0) H 04/25/17 05:11 INR 1.23 (0.83-1.16) H 04/25/17 05:11 Physical Exam - Physical Exam General Appearance: WD/WN, alert, no apparent distress EENT: PERRL/EOMI Neck: supple Respiratory: lungs clear, normal breath sounds, No respiratory distress, No accessory muscle use Cardiac/Chest: regular rate, rhythm, No edema Abdomen: normal bowel sounds, non-tender, soft, No distended Skin: normal color, warm/dry Lymphatic: no adenopathy Extremities: No pedal edema Neuro/Psych: alert, normal mood/affect, oriented x 3 ICD10 Worksheet Patient Problems: Problems Problem Status Onset Empyema lung Acute Severe sepsis Acute Fracture of femoral neck, right, closed Acute Tobacco abuse Acute History of breast cancer in female Chronic History of skin cancer of unknown type Chronic Migraine Chronic
[2017-04-26] MEDS: NORTRIPTYLINE HCL 25 MG CAP PO SCH (20:08)
[2017-04-26] MEDS: ACETAMINOPHEN 325 MG TAB PO PRN (20:08)
[2017-04-26] MEDS: NADOLOL 20 MG TAB PO SCH (20:09)
[2017-04-27] MEDS: AMPICILLIN/SULBACTAM 3 GM in NS 100 ML IV SCH ×4 (05:00→23:17)
[2017-04-27 05:50] LABS: % IMMATURE GRANULYOCYTES 1.1 % (0.0-1.1); ABSOLUTE IMMATURE GRANULOCYTES 0.24 10^3/uL (0.00-0.10); ADD DIFF? NO; ADD MORPH? NO; ADD SCAN? NO; ATYPICAL LYMPHOCYTE FLAG 0 (0-99); FRAGMENT RBC FLAG 0 (0-99); HEMATOCRIT 26.4 % (38.0-47.0); HEMOGLOBIN 8.6 g/dL (12.6-16.3); LEFT SHIFT FLG 20 (0-99); LIPEMIA HEMOLYSIS FLAG 80 (0-99); MEAN CELL HEMOGLOBIN 29.3 pg (27.9-34.1); MEAN CELL HEMOGLOBIN CONCENTR. 32.6 g/dL (32.4-36.7); MEAN CELL VOLUME 89.8 fL (81.5-99.8); MEAN PLATELET VOLUME 9.2 fL (8.7-11.7); PLATELET CLUMPS FLAG 0 (0-99); RED BLOOD CELL COUNT 2.94 10^6/uL (4.18-5.33); RED CELL DISTRIBUTION WIDTH 14.6 % (11.5-15.2)
[2017-04-27 05:54] LABS: PLATELET COUNT 944 10^3/uL (150-400)
[2017-04-27 06:12] LABS: ANION GAP 12 mEq/L (8-16); CALCIUM 8.1 mg/dL (8.5-10.4); CARBON DIOXIDE 23 mEq/l (22-31); CHLORIDE 106 mEq/L (97-110); CREATININE 0.6 mg/dL (0.6-1.0); GLOMERULAR FILTRATION RATE > 60; GLUCOSE 92 mg/dL (70-100); SODIUM 141 mEq/L (134-144)
[2017-04-27 06:28] LABS: PLATELET ESTIMATE INCREASED (ADEQ)
--- NOTE | 2017-04-27 09:42 | PCMIDPN ---
Assessment/Plan: 1. Right upper lobe necrotizing pneumonia with concomitant abscess formation: White blood cell count up today, and she looks about the same. Patient does have a Jacuzzi in her house and there are case reports of Legionella causing abscess formation. Will obtain urine Legionella antigen. She is also agreed to an HIV test for completeness sake. For now, will continue Unasyn. If the patient clinically deteriorates or her white blood cell count continues to rise , will need bronchoscopic evaluation. Have also ordered Respiratory therapy to work with her today for pulmonary toilet. 2. Positive blood culture: Suspect this is a contaminant. Asked microbiology about possibility of Nocardia ; they think this is likely a diphtheroid and represents contamination. Await identification of the organism. Subjective: Feels very tired. Still coughing, and expectorating brownish, thick sputum. Does not feel short of breath. No shaking chills. No diarrhea on the antibiotics. Tells me she has a tub-like Jacuzzi at home that she occasionally uses. No recent travel within outside [facility]. from her . has never been HIV tested. Objective: Unasyn 3 g IV q.6 hours day 2 T-max 37.7degrees 96% on room air Vital Signs Temp Pulse Resp BP Pulse Ox 37.7 C 83 20 140/76 H 94 04/27/17 07:19 04/27/17 07:19 04/27/17 07:19 04/27/17 07:19 04/27/17 07:19 Microbiology 04/25/17 06:30 - Final Sputum, Expectorated Laboratory Results 04/27/17 04:59 04/27/17 04:59 04/26/17 04/27/17 04/28/17 05:59 05:59 04:59 Intake Total 3117 790 Output Total 250 300 Balance 2867 490 Blood cultures x2 on April 2406/27 bottles with gram-positive donald Sputum culture with oral deon - Physical Exam General Appearance: other (Looks tired.) EENT: No scleral icterus, No thrush Respiratory: crackles (Right upper lung field) Cardiac/Chest: regular rate, rhythm Abdomen: non-tender, soft Skin: No rash ICD10 Worksheet Patient Problems: Problems Problem Status Onset Empyema lung Acute Severe sepsis Acute Fracture of femoral neck, right, closed Acute Tobacco abuse Acute History of breast cancer in female Chronic History of skin cancer of unknown type Chronic Migraine Chronic
--- NOTE | 2017-04-27 13:56 | PDINTPN ---
[employer] Progress Note Assessment/Plan: Assessment/plan: 66 F admitted with several weeks of malaise which started with URI symmptoms. She was treated with azithromycin with initial improvement, but deteriorated. A CXR was abnormal and a chest CT revealed dense consolidation in the RUL with hypodensities consistent with abscess. There was some concern about recurrent breast cancer, so bronchoscopy was requested. * Pulmonary abscess- seen by ID. 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 BAL not usually indicated and needle aspirates often result in spread of disease or empyema. However, slight rise in WBC is bothersome and could indicate inadequate source control. A foreign body could present this way and I agree that if her wbc continues to rise, I will do a bronchoscopy. BAL cultures are highly UNlikely to be useful given her appropriate abx thus far. Malignancy is very low on the differential, but bronchial brushings would be safe and could help in this regard. I dont see significant pleural fluid to sample or indicate empyema at this point. There has been no historical data thus far to suspect a FB, though she did say her symptoms seem to have arisen following colonoscopy last month. I agree that the diptheroid blood cx is likely a contaminant. She is NPO tonight and will proceed with bronchoscopy if the wbc rises. 04/27/17 13:49 Subjective: feeling better, but still with purulent sputum. Objective: Vital Signs Temp Pulse Resp BP Pulse Ox 37.2 C 85 20 126/66 H 87 L 04/27/17 11:10 04/27/17 11:10 04/27/17 11:10 04/27/17 11:10 04/27/17 11:10 Microbiology 04/25/17 06:30 - Final Sputum, Expectorated Sputum Culture - Final Laboratory Results 04/27/17 04:59 04/27/17 04:59 04/26/17 04/27/17 04/28/17 05:59 05:59 04:59 Intake Total 3117 790 Output Total 250 300 Balance 2867 490 PT 15.5 SEC (12.0-15.0) H 04/25/17 05:11 INR 1.23 (0.83-1.16) H 04/25/17 05:11 Physical Exam - Physical Exam General Appearance: WD/WN, alert, no apparent distress EENT: PERRL/EOMI Neck: supple Respiratory: normal breath sounds, decreased breath sounds, No respiratory distress Cardiac/Chest: regular rate, rhythm, No edema Abdomen: normal bowel sounds, non-tender, soft, No distended Skin: normal color, warm/dry Lymphatic: no adenopathy Extremities: No pedal edema Neuro/Psych: alert, normal mood/affect, oriented x 3 ICD10 Worksheet Patient Problems: Problems Problem Status Onset Empyema lung Acute Severe sepsis Acute Fracture of femoral neck, right, closed Acute Tobacco abuse Acute History of breast cancer in female Chronic History of skin cancer of unknown type Chronic Migraine Chronic
--- NOTE | 2017-04-27 14:42 | HOSPPROG ---
Hospitalist Progress Note Assessment/Plan: Assessment: 66-year-old female presents with acute pulmonary abscess Plan: 1. Pulmonary abscess. RUL, ?post-viral PNA with central necrosis and liquefaction. WBC's persist elevated. -considering bronch in am, d/w ID -cont unasyn -PICC this am -monitor WBC/fever curve -will need f/u chest CT in 4 weeks 2. Acute metabolic acidosis. Lactic acid 2.5 on arrival, now normalized. 3. Atelectasis. present on chest imaging, personally reviewed and interpreted, likely secondary to compression from infection outlined above -cont IS 4. Subclavian stenosis. Right-sided, approximately 70% on chest CT, potentially secondary to compression from above, re-evaluate any symptoms of subclavian steal if they occur with CT angiography Diet. Regular Prophylaxis. High risk patient, Lovenox 40 Code. Full Disposition. Cont inpt. Subjective: Pt is resting comfortably. Continues to cough, reports minimal mucus production. No CP or SOB. She is tired. Objective: Vital Signs Temp Pulse Resp BP Pulse Ox 37.2 C 85 20 126/66 H 87 L 04/27/17 11:10 04/27/17 11:10 04/27/17 11:10 04/27/17 11:10 04/27/17 11:10 Microbiology 04/25/17 06:30 - Final Sputum, Expectorated Sputum Culture - Final Laboratory Results 04/27/17 04:59 04/27/17 04:59 04/26/17 04/27/17 04/28/17 05:59 05:59 04:59 Intake Total 3117 790 Output Total 250 300 Balance 2867 490 PT 15.5 SEC (12.0-15.0) H 04/25/17 05:11 INR 1.23 (0.83-1.16) H 04/25/17 05:11 - Physical Exam Constitutional: no apparent distress Eyes: PERRL Ears, Nose, Mouth, Throat: moist mucous membranes Cardiovascular: regular rate and rhythym Respiratory: no respiratory distress, inspiratory crackles Gastrointestinal: normoactive bowel sounds, soft, non-tender abdomen Skin: warm Musculoskeletal: full muscle strength Neurologic: AAOx3 Psychiatric: interacting appropriately ICD10 Worksheet Patient Problems: Problems Problem Status Onset Empyema lung Acute Severe sepsis Acute Fracture of femoral neck, right, closed Acute Tobacco abuse Acute History of breast cancer in female Chronic History of skin cancer of unknown type Chronic Migraine Chronic
--- NOTE | 2017-04-27 17:03 | ASMTCMCOM ---
CM Note CM Note Notes: Reviewed chart for discharge plan, pt's progress. Per MD notes, pt may require bronch in AM 04/28/17; PICC line placed today; awaiting blood culture organism. LVM for [facility] at [facility] to follow up on referral; awaiting call back. CM will cont to follow. Current Discharge Plan: Home w/ Home Health Care and IV Infusion Services Date Signed: 04/27/2017 05:03 PM Electronically Signed By:Margot Vásquez RN
[2017-04-27] MEDS: NICOTINE 21 MG/24 HR PATCH TD SCH (20:04)
[2017-04-27] MEDS: NORTRIPTYLINE HCL 25 MG CAP PO SCH (20:06)
[2017-04-27] MEDS: NADOLOL 20 MG TAB PO SCH (20:06)
[2017-04-27] MEDS: NS 1,000 ML IV SCH (23:18)
[2017-04-28] MEDS: AMPICILLIN/SULBACTAM 3 GM in NS 100 ML IV SCH ×4 (06:08→23:31)
[2017-04-28 06:22] LABS: % IMMATURE GRANULYOCYTES 1.2 % (0.0-1.1); ABSOLUTE IMMATURE GRANULOCYTES 0.21 10^3/uL (0.00-0.10); ABSOLUTE NRBC COUNT 0.02 10^3/uL (0-0.01); ADD DIFF? NO; ADD MORPH? NO; ADD SCAN? NO; ATYPICAL LYMPHOCYTE FLAG 0 (0-99); FRAGMENT RBC FLAG 0 (0-99); HEMATOCRIT 25.2 % (38.0-47.0); HEMOGLOBIN 8.5 g/dL (12.6-16.3); LEFT SHIFT FLG 20 (0-99); LIPEMIA HEMOLYSIS FLAG 80 (0-99); MEAN CELL HEMOGLOBIN 29.6 pg (27.9-34.1); MEAN CELL HEMOGLOBIN CONCENTR. 33.7 g/dL (32.4-36.7); MEAN CELL VOLUME 87.8 fL (81.5-99.8); MEAN PLATELET VOLUME 8.8 fL (8.7-11.7); NRBC-AUTO% 0.1 % (0.0-0.2); PLATELET CLUMPS FLAG 20 (0-99); RED BLOOD CELL COUNT 2.87 10^6/uL (4.18-5.33); RED CELL DISTRIBUTION WIDTH 14.8 % (11.5-15.2)
[2017-04-28 06:23] LABS: PLATELET COUNT 913 10^3/uL (150-400)
[2017-04-28 06:42] LABS: PLATELET ESTIMATE INCREASED (ADEQ)
[2017-04-28 06:45] LABS: ANION GAP 7 mEq/L (8-16); CALCIUM 7.9 mg/dL (8.5-10.4); CARBON DIOXIDE 27 mEq/l (22-31); CHLORIDE 107 mEq/L (97-110); CREATININE 0.5 mg/dL (0.6-1.0); GLOMERULAR FILTRATION RATE > 60; GLUCOSE 92 mg/dL (70-100); POTASSIUM 3.6 mEq/L (3.5-5.2); SODIUM 141 mEq/L (134-144)
--- NOTE | 2017-04-28 10:00 | PCMIDPN ---
Assessment/Plan: 1. Right upper lobe necrotizing pneumonia with concomitant abscess formation: White blood cell count is down today. Hold off on bronchoscopy. Continue Unasyn as is. Continue aggressive pulmonary toilet. Patient understands the need for getting out of bed and walking the halls. She will likely need a course of intravenous therapy given extent of pneumonia, and this was conveyed to her today. 2. Positive blood culture: Blood culture was several different organisms. This almost certainly represents contamination. Will repeat blood culture. Subjective: Did not sleep well. Worked with Respiratory yesterday. Still expectorating putrid sputum. No nausea, vomiting, diarrhea, rash. Has not been wearing her oxygen, but oxygen saturation on room air noted to be 84%. Counseled patient to keep her oxygen cannula on. Patient tells me that this illness has convinced her to stop smoking. Objective: Reason 3 g IV q.6 hours day 3 T-max 37.2degrees 84% on room air Vital Signs Temp Pulse Resp BP Pulse Ox 37.1 C 87 20 155/75 H 84 L 04/28/17 07:07 04/28/17 07:07 04/28/17 07:07 04/28/17 07:07 04/28/17 07:07 Microbiology 04/25/17 06:30 - Final Sputum, Expectorated Sputum Culture - Final Laboratory Results 04/28/17 06:11 04/28/17 06:11 04/27/17 04/28/17 04/29/17 06:59 05:59 05:59 Intake Total Output Total Balance Sputum with mixed oral deon Blood culture April 2406/27 bottles with diphtheroids G stain also revealed gram-positive cocci in pairs and clusters in anaerobic bottle, PCR negative - Physical Exam General Appearance: other (Looks tired. Nontoxic.) EENT: No thrush Respiratory: crackles (Right midlung field and upper lung field. No wheeze. No rub.) Extremities: other (PICC line right upper extremity looks okay.) Abdomen: non-tender, soft Skin: No rash ICD10 Worksheet Patient Problems: Problems Problem Status Onset Empyema lung Acute Severe sepsis Acute Fracture of femoral neck, right, closed Acute Tobacco abuse Acute History of breast cancer in female Chronic History of skin cancer of unknown type Chronic Migraine Chronic
[2017-04-28] MEDS: NS 1,000 ML IV SCH (11:26)
--- NOTE | 2017-04-28 13:32 | PDINTPN ---
S[employer] Liv[employer] Worker Progress Note Assessment/Plan: Assessment/plan: 66 F admitted with several weeks of malaise which started with URI symmptoms. She was treated with azithromycin with initial improvement, but deteriorated. A CXR was abnormal and a chest CT revealed dense consolidation in the RUL with hypodensities consistent with abscess. There was some concern about recurrent breast cancer, so bronchoscopy was requested. * Pulmonary abscess- seen by ID. Treatment consists of tour escort antibiotics with a usually good prognosis. BAL not usually indicated and needle aspirates often result in spread of disease or empyema. However, slight rise in WBC on 04/27 was bothersome and could indicate inadequate source control. A foreign body could present this way and I agree that if her wbc continues to rise, I will do a bronchoscopy. BAL cultures are highly UNlikely to be useful given her appropriate abx thus far. Malignancy is very low on the differential, but bronchial brushings would be safe and could help in this regard. I dont see significant pleural fluid to sample or indicate empyema at this point. There has been no historical data thus far to suspect a FB, though she did say her symptoms seem to have arisen following colonoscopy last month. I agree that the diptheroid blood cx is likely a contaminant. * WBC reduced today so agree with no bronch. Will sign off, but call prn 04/27/17 13:49 04/28/17 13:30 Subjective: no events Objective: Vital Signs Temp Pulse Resp BP Pulse Ox 37.0 C 81 16 151/68 H 94 04/28/17 10:57 04/28/17 10:57 04/28/17 10:57 04/28/17 10:57 04/28/17 10:57 Microbiology 04/25/17 06:30 - Final Sputum, Expectorated Sputum Culture - Final Laboratory Results 04/28/17 06:11 04/28/17 06:11 04/27/17 04/28/17 04/29/17 06:59 05:59 05:59 Intake Total Output Total 200 Balance -200 PT 15.5 SEC (12.0-15.0) H 04/25/17 05:11 INR 1.23 (0.83-1.16) H 04/25/17 05:11 Physical Exam - Physical Exam General Appearance: alert, no apparent distress EENT: PERRL/EOMI Neck: supple Respiratory: lungs clear, normal breath sounds, No respiratory distress Cardiac/Chest: regular rate, rhythm, No edema Abdomen: normal bowel sounds, non-tender, soft Skin: normal color, warm/dry Lymphatic: no adenopathy Extremities: No pedal edema Neuro/Psych: alert, normal mood/affect, oriented x 3 ICD10 Worksheet Patient Problems: Problems Problem Status Onset Empyema lung Acute Severe sepsis Acute Fracture of femoral neck, right, closed Acute Tobacco abuse Acute History of breast cancer in female Chronic History of skin cancer of unknown type Chronic Migraine Chronic
--- NOTE | 2017-04-28 13:32 | HOSPPROG ---
Hospitalist Progress Note Assessment/Plan: Assessment: 66-year-old female presents with acute pulmonary abscess Plan: 1. Pulmonary abscess. RUL, ?post-viral PNA with central necrosis and liquefaction. WBC's trending down -defer bronch -cont unasyn -PICC in place -monitor WBC/fever curve -will need f/u chest CT in 4 weeks 2. Acute metabolic acidosis. Lactic acid 2.5 on arrival, now normalized. 3. Atelectasis. present on chest imaging, personally reviewed and interpreted, likely secondary to compression from infection outlined above -cont IS 4. Subclavian stenosis. Right-sided, approximately 70% on chest CT, potentially secondary to compression from above, re-evaluate any symptoms of subclavian steal if they occur with CT angiography Diet. Regular Prophylaxis. High risk patient, Lovenox 40 Code. Full Disposition. Cont inpt. Subjective: Pt feels a bit better. Still coughing a little. Walking more, getting her energy back. No fevers. No CP. Eating fairly well. Objective: Vital Signs Temp Pulse Resp BP Pulse Ox 37.0 C 81 16 151/68 H 94 04/28/17 10:57 04/28/17 10:57 04/28/17 10:57 04/28/17 10:57 04/28/17 10:57 Microbiology 04/25/17 06:30 - Final Sputum, Expectorated Sputum Culture - Final Laboratory Results 04/28/17 06:11 04/28/17 06:11 04/27/17 04/28/17 04/29/17 06:59 05:59 05:59 Intake Total Output Total 200 Balance -200 PT 15.5 SEC (12.0-15.0) H 04/25/17 05:11 INR 1.23 (0.83-1.16) H 04/25/17 05:11 - Physical Exam Constitutional: no apparent distress Eyes: PERRL Ears, Nose, Mouth, Throat: moist mucous membranes Cardiovascular: regular rate and rhythym Respiratory: no respiratory distress, reduced air movement, inspiratory crackles Gastrointestinal: normoactive bowel sounds, soft, non-tender abdomen Skin: warm Musculoskeletal: full muscle strength Neurologic: AAOx3 Psychiatric: interacting appropriately ICD10 Worksheet Patient Problems: Problems Problem Status Onset Empyema lung Acute Severe sepsis Acute Fracture of femoral neck, right, closed Acute Tobacco abuse Acute History of breast cancer in female Chronic History of skin cancer of unknown type Chronic Migraine Chronic
[2017-04-28] MEDS: ENOXAPARIN 40 MG/0.4 ML SYR SC SCH (15:39)
[2017-04-28] MEDS: NADOLOL 20 MG TAB PO SCH (20:46)
[2017-04-28] MEDS: NORTRIPTYLINE HCL 25 MG CAP PO SCH (20:46)
[2017-04-28] MEDS: NICOTINE 21 MG/24 HR PATCH TD SCH (20:47)
[2017-04-29] MEDS: AMPICILLIN/SULBACTAM 3 GM in NS 100 ML IV SCH ×4 (05:36→23:21)
[2017-04-29 06:01] LABS: % IMMATURE GRANULYOCYTES 0.9 % (0.0-1.1); ABSOLUTE IMMATURE GRANULOCYTES 0.17 10^3/uL (0.00-0.10); ADD DIFF? NO; ADD MORPH? NO; ADD SCAN? NO; ATYPICAL LYMPHOCYTE FLAG 30 (0-99); FRAGMENT RBC FLAG 0 (0-99); HEMATOCRIT 23.5 % (38.0-47.0); HEMOGLOBIN 8.1 g/dL (12.6-16.3); LEFT SHIFT FLG 20 (0-99); LIPEMIA HEMOLYSIS FLAG 90 (0-99); MEAN CELL HEMOGLOBIN 30.7 pg (27.9-34.1); MEAN CELL HEMOGLOBIN CONCENTR. 34.5 g/dL (32.4-36.7); MEAN PLATELET VOLUME 8.9 fL (8.7-11.7); PLATELET CLUMPS FLAG 0 (0-99); RED BLOOD CELL COUNT 2.64 10^6/uL (4.18-5.33)
[2017-04-29 06:11] LABS: PLATELET COUNT 858 10^3/uL (150-400)
--- NOTE | 2017-04-29 09:29 | HOSPPROG ---
Hospitalist Progress Note Assessment/Plan: Assessment: 66-year-old female presents with acute pulmonary abscess Plan: 1. Pulmonary abscess. RUL, ?post-viral PNA with central necrosis and liquefaction. WBC's persist elevated -discussed with pulm for re-consideration of bronch, Dr. Manriquez will see, but likely continue to hold off on bronch -cont unasyn, ID following -PICC in place -monitor WBC/fever curve -will need f/u chest CT in 4 weeks 2. Acute metabolic acidosis. Lactic acid 2.5 on arrival, now normalized. 3. Atelectasis. present on chest imaging, personally reviewed and interpreted, likely secondary to compression from infection outlined above -cont IS 4. Subclavian stenosis. Right-sided, approximately 70% on chest CT, potentially secondary to compression from above, re-evaluate any symptoms of subclavian steal if they occur with CT angiography. Remains asymptomatic today. Diet. Regular Prophylaxis. High risk patient, Lovenox 40 Code. Full Disposition. Cont inpt. Subjective: Pt feels okay, still with wet cough. No CP or SOB at rest. No fevers. Still weak. Appetite fair. Objective: Vital Signs Temp Pulse Resp BP Pulse Ox 37.0 C 77 16 103/65 95 04/29/17 07:53 04/29/17 07:53 04/29/17 07:53 04/29/17 07:53 04/29/17 07:53 Laboratory Results 04/29/17 05:45 04/28/17 06:11 04/28/17 04/29/17 04/30/17 05:59 05:59 05:59 Intake Total 490 Output Total 200 Balance 290 PT 15.5 SEC (12.0-15.0) H 04/25/17 05:11 INR 1.23 (0.83-1.16) H 04/25/17 05:11 - Physical Exam Constitutional: no apparent distress Eyes: PERRL Ears, Nose, Mouth, Throat: moist mucous membranes Cardiovascular: regular rate and rhythym Respiratory: no respiratory distress, inspiratory crackles Gastrointestinal: normoactive bowel sounds, soft, non-tender abdomen Skin: warm Musculoskeletal: full muscle strength Neurologic: AAOx3 Psychiatric: interacting appropriately ICD10 Worksheet Patient Problems: Problems Problem Status Onset Empyema lung Acute Severe sepsis Acute Fracture of femoral neck, right, closed Acute Tobacco abuse Acute History of breast cancer in female Chronic History of skin cancer of unknown type Chronic Migraine Chronic
[2017-04-29] MEDS: ENOXAPARIN 40 MG/0.4 ML SYR SC SCH (09:34)
[2017-04-29 13:56] LABS: MYCOPLASMA PNUEMONIAE IGM NEGATIVE (Negative)
[2017-04-29 14:46] LABS: PLATELET ESTIMATE DECREASED (ADEQ)
--- NOTE | 2017-04-29 16:36 | PCMIDPN ---
Assessment/Plan: Assessment/Plan: 1. RUL necrotizing pneumonia with abscesses: -Blood cx, RVP negative - sputum cx with mixed oral deon -wbc fluctuating - currently on unasyn - Some clinical improvment compared to admit. O2 needs stable. - Care discussed with Dr. Manriquez. Holding off on bronch for now but close clinical monitoring. f/u imaging in Am. -Overall plan of care regarding course of IV and oral antibiotics reviewed with patient. Meds unasyn 3g iv q6- Subjective: afebrile. o2 at 2L. denies feeling short of breath. less fatigue then on admit. was bringing up more secretions past couple of days, but not much now. denies abd pain or diarrhea. Objective: Vital Signs Temp Pulse Resp BP Pulse Ox 36.6 C 80 18 98/64 L 97 04/29/17 14:58 04/29/17 14:58 04/29/17 14:58 04/29/17 14:58 04/29/17 14:58 Laboratory Results 04/29/17 05:45 04/28/17 06:11 04/28/17 04/29/17 04/30/17 05:59 05:59 05:59 Intake Total 490 Output Total 200 Balance 290 - Physical Exam General Appearance: alert, no apparent distress Respiratory: coarse breath sounds (course bs right upper lung. poor overall inspiratory effort) Cardiac/Chest: regular rate, rhythm Extremities: No swelling ICD10 Worksheet Patient Problems: Problems Problem Status Onset Empyema lung Acute Severe sepsis Acute Fracture of femoral neck, right, closed Acute Tobacco abuse Acute History of breast cancer in female Chronic History of skin cancer of unknown type Chronic Migraine Chronic
--- NOTE | 2017-04-29 16:50 | PDINTPN ---
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 She was treated with azithromycin with initial improvement, but deteriorated. A CXR was abnormal and a chest CT revealed dense consolidation in the RUL with hypodensities consistent with abscess. There was some concern about recurrent breast cancer, so bronchoscopy was requested. * Pulmonary abscess- On Unasyn. WBC high, fluctuating but not steadily trending up or down. Afebrile and feeling better. CT shows air bronchograms in some areas , dense consolidation/necrosis as well. A single obstructing lesion is unlikely given the air bronchograms. Her clinical course is as would be expected for an extensive necrotizing pneumonia. Plan: Check CXR to exclude accumulation of a parapneumonic effusion. No bronchoscopy for now as it's unlikely to alter management or be therapeutic, reconsider if she worsens or in not improving further. Hopefully will be heading towards D/C home with IV antibiotics by the weekend. D/W Drs. Sommers and Zainab 04/29/17 16:50 Subjective: Feels a bit better, energy improved. Objective: Vital Signs Temp Pulse Resp BP Pulse Ox 36.6 C 80 18 98/64 L 97 04/29/17 14:58 04/29/17 14:58 04/29/17 14:58 04/29/17 14:58 04/29/17 14:58 Laboratory Results 04/29/17 05:45 04/28/17 06:11 04/28/17 04/29/17 04/30/17 05:59 05:59 05:59 Intake Total 490 Output Total 200 Balance 290 PT 15.5 SEC (12.0-15.0) H 04/25/17 05:11 INR 1.23 (0.83-1.16) H 04/25/17 05:11 PICC X-ray: Consolidation looks stable. Images reviewed. Physical Exam - Physical Exam General Appearance: alert, no apparent distress EENT: normal ENT inspection Neck: normal inspection Respiratory: decreased breath sounds (right mid-base) Cardiac/Chest: regular rate, rhythm, No edema Abdomen: normal bowel sounds, non-tender Skin: normal color, warm/dry Extremities: normal inspection Neuro/Psych: alert, normal mood/affect, oriented x 3 ICD10 Worksheet Patient Problems: Problems Problem Status Onset Empyema lung Acute Severe sepsis Acute Fracture of femoral neck, right, closed Acute Tobacco abuse Acute History of breast cancer in female Chronic History of skin cancer of unknown type Chronic Migraine Chronic
[2017-04-29] MEDS: NADOLOL 20 MG TAB PO SCH (19:47)
[2017-04-29] MEDS: HYDROmorphONE/DILAUDID 1 MG/ML INJ IVP PRN (19:47)
[2017-04-29] MEDS: NORTRIPTYLINE HCL 25 MG CAP PO SCH (19:47)
[2017-04-29] MEDS: NICOTINE 21 MG/24 HR PATCH TD SCH (19:47)
[2017-04-30] MEDS: HYDROmorphONE/DILAUDID 1 MG/ML INJ IVP PRN (05:48)
[2017-04-30] MEDS: AMPICILLIN/SULBACTAM 3 GM in NS 100 ML IV SCH ×3 (05:48→17:37)
[2017-04-30 06:06] LABS: % IMMATURE GRANULYOCYTES 0.9 % (0.0-1.1); ABSOLUTE IMMATURE GRANULOCYTES 0.19 10^3/uL (0.00-0.10); ADD DIFF? NO; ADD MORPH? NO; ADD SCAN? NO; ATYPICAL LYMPHOCYTE FLAG 20 (0-99); FRAGMENT RBC FLAG 0 (0-99); HEMATOCRIT 25.9 % (38.0-47.0); HEMOGLOBIN 8.8 g/dL (12.6-16.3); LEFT SHIFT FLG 20 (0-99); LIPEMIA HEMOLYSIS FLAG 90 (0-99); MEAN CELL VOLUME 88.4 fL (81.5-99.8); MEAN PLATELET VOLUME 8.9 fL (8.7-11.7); PLATELET CLUMPS FLAG 0 (0-99); RED BLOOD CELL COUNT 2.93 10^6/uL (4.18-5.33); RED CELL DISTRIBUTION WIDTH 15.2 % (11.5-15.2)
[2017-04-30 06:11] LABS: PLATELET COUNT 954 10^3/uL (150-400)
[2017-04-30 06:56] LABS: PLATELET ESTIMATE INCREASED (ADEQ)
[2017-04-30] MEDS: ENOXAPARIN 40 MG/0.4 ML SYR SC SCH (09:59)
--- NOTE | 2017-04-30 14:01 | PCMIDPN ---
Assessment/Plan: Assessment/Plan: 1. RUL necrotizing pneumonia with abscesses: -Blood cx, RVP negative - sputum cx with mixed oral deon -wbc fluctuating - currently on unasyn - Some clinical improvement compared to admit. Will be slow course.close clinical monitoring. -O2 needs stable and improved -Overall plan of care regarding course of IV and oral antibiotics reviewed with patient. -care coordinated with Dr. Lamb. - f/u CXR today with bibasilar infiltrates now, and right sided consolidation. Consider f/u Ct chest -DIscussed importance of IS. - Meds unasyn 3g iv q6- Subjective: afebrile. sitting in chair. o2 via nc down to 1L. productive cough, still with some thick yellow brown sputum. denies diarrhea. walking hallways without shortness of breath. overall is feeling better. Objective: Vital Signs Temp Pulse Resp BP Pulse Ox 36.9 C 74 20 130/80 H 98 04/30/17 11:38 04/30/17 11:38 04/30/17 11:38 04/30/17 11:38 04/30/17 11:38 Laboratory Results 04/30/17 05:50 04/28/17 06:11 04/29/17 04/30/17 05/01/17 05:59 05:59 05:59 Intake Total 490 950 Output Total 200 Balance 290 950 - Physical Exam General Appearance: alert, no apparent distress Respiratory: coarse breath sounds Cardiac/Chest: regular rate, rhythm Extremities: No swelling Abdomen: normal bowel sounds, non-tender, soft, No distended Skin: No erythema ICD10 Worksheet Patient Problems: Problems Problem Status Onset Empyema lung Acute Severe sepsis Acute Fracture of femoral neck, right, closed Acute Tobacco abuse Acute History of breast cancer in female Chronic History of skin cancer of unknown type Chronic Migraine Chronic
--- NOTE | 2017-04-30 15:02 | PDINTPN ---
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 She was treated with azithromycin with initial improvement, but deteriorated. A CXR was abnormal and a chest CT revealed dense consolidation in the RUL with hypodensities consistent with abscess. There was some concern about recurrent breast cancer, so bronchoscopy was requested. * Pulmonary abscess- On Unasyn. WBC high, fluctuating but not steadily trending up or down. Afebrile and feeling better. CT shows air bronchograms in some areas , dense consolidation/necrosis as well. A single obstructing lesion is unlikely given the air bronchograms. Her clinical course is as would be expected for an extensive necrotizing pneumonia. CXR today shows new effusion, which is not unexpected. Could contribute to increased WBC if this is a complicated parapneumonic effusion or empyema (less likely). Plan: Check CT Chest to evaluate effusion. No bronchoscopy for now as it's unlikely to alter management or be therapeutic, reconsider if she worsens or in not improving further. Hopefully will be heading towards D/C home with IV antibiotics by the weekend. D/W Dr. Sommers 04/29/17 16:50 04/30/17 15:00 Subjective: Feels about the same. Coughed up some sputum this morning. Objective: Vital Signs Temp Pulse Resp BP Pulse Ox 36.9 C 74 20 130/80 H 98 04/30/17 11:38 04/30/17 11:38 04/30/17 11:38 04/30/17 11:38 04/30/17 11:38 Laboratory Results 04/30/17 05:50 04/28/17 06:11 04/29/17 04/30/17 05/01/17 05:59 05:59 05:59 Intake Total 490 950 Output Total 200 Balance 290 950 PT 15.5 SEC (12.0-15.0) H 04/25/17 05:11 INR 1.23 (0.83-1.16) H 04/25/17 05:11 CXR New moderate right effusion. Persistent RAYO consolidation. Images reviewed. Physical Exam - Physical Exam General Appearance: alert, no apparent distress EENT: normal ENT inspection Neck: normal inspection Respiratory: decreased breath sounds (right base), crackles (bases), No lungs clear, No normal breath sounds Cardiac/Chest: regular rate, rhythm, edema (trace) Abdomen: normal bowel sounds, non-tender Skin: normal color, warm/dry Extremities: normal inspection Neuro/Psych: alert, normal mood/affect, oriented x 3 ICD10 Worksheet Patient Problems: Problems Problem Status Onset Empyema lung Acute Severe sepsis Acute Fracture of femoral neck, right, closed Acute Tobacco abuse Acute History of breast cancer in female Chronic History of skin cancer of unknown type Chronic Migraine Chronic
--- NOTE | 2017-04-30 15:23 | ASMTCMCOM ---
CM Note CM Note Notes: CM spoke w/ Dori from [facility] and they are able to follow pt once she is ready to d/c. CM sent [facility] updates via [employer]. MELANIE to follow. Date Signed: 04/30/2017 03:22 PM Electronically Signed By:TRESA Gutierrez
[2017-04-30] MEDS ORDERED: IOPAMIDOL (ISOVUE-300) 100 ML BTL ONE (15:44)
--- NOTE | 2017-04-30 17:14 | HOSPPROG ---
Hospitalist Progress Note Assessment/Plan: Assessment: 66-year-old female presents with acute pulmonary abscess, with persistent leukocytosis Plan: # Pulmonary abscess / PNA with central necrosis and liquefaction. WBC's persist elevated. Discussed with pulm and ID. Repeat CXR today shows new bibasilar consolidation, ?atelectasis vs effusions. 2 LPM -CT ordered by pulm -cont unasyn, ID following -PICC in place -monitor WBC/fever curve -will need f/u chest CT in 4 weeks # Acute metabolic acidosis. Lactic acid 2.5 on arrival, now normalized. # Subclavian stenosis. Right-sided, approximately 70% on chest CT, potentially secondary to compression from above, re-evaluate any symptoms of subclavian steal if they occur with CT angiography. Remains asymptomatic today. Diet. Regular Prophylaxis. High risk patient, Lovenox 40 Code. Full Disposition. Cont inpt. Subjective: Pt feels okay, still low energy, but ambulating a bit more. Still with wet cough. Denies CP or SOB. No more fevers. Objective: Vital Signs Temp Pulse Resp BP Pulse Ox 36.7 C 75 18 115/69 87 L 04/30/17 15:39 04/30/17 15:39 04/30/17 15:39 04/30/17 15:39 04/30/17 15:39 Laboratory Results 04/30/17 05:50 04/28/17 06:11 04/29/17 04/30/17 05/01/17 05:59 05:59 05:59 Intake Total 490 950 Output Total 200 Balance 290 950 PT 15.5 SEC (12.0-15.0) H 04/25/17 05:11 INR 1.23 (0.83-1.16) H 04/25/17 05:11 - Physical Exam Constitutional: no apparent distress Eyes: PERRL Ears, Nose, Mouth, Throat: moist mucous membranes Cardiovascular: regular rate and rhythym Respiratory: no respiratory distress, reduced air movement, inspiratory crackles Gastrointestinal: normoactive bowel sounds, soft, non-tender abdomen Skin: warm Musculoskeletal: full muscle strength Neurologic: AAOx3 Psychiatric: interacting appropriately ICD10 Worksheet Patient Problems: Problems Problem Status Onset Empyema lung Acute Severe sepsis Acute Fracture of femoral neck, right, closed Acute Tobacco abuse Acute History of breast cancer in female Chronic History of skin cancer of unknown type Chronic Migraine Chronic
[2017-04-30] MEDS: NADOLOL 20 MG TAB PO SCH (20:44)
[2017-04-30] MEDS: NORTRIPTYLINE HCL 25 MG CAP PO SCH (20:44)
[2017-04-30] MEDS: NICOTINE 21 MG/24 HR PATCH TD SCH (20:46)
[2017-05-01] MEDS: AMPICILLIN/SULBACTAM 3 GM in NS 100 ML IV SCH ×4 (00:32→18:06)
[2017-05-01 05:24] LABS: % IMMATURE GRANULYOCYTES 0.7 % (0.0-1.1); ABSOLUTE IMMATURE GRANULOCYTES 0.13 10^3/uL (0.00-0.10); ADD DIFF? NO; ADD MORPH? NO; ADD SCAN? NO; ATYPICAL LYMPHOCYTE FLAG 40 (0-99); FRAGMENT RBC FLAG 0 (0-99); HEMOGLOBIN 8.7 g/dL (12.6-16.3); LEFT SHIFT FLG 20 (0-99); LIPEMIA HEMOLYSIS FLAG 90 (0-99); MEAN CELL HEMOGLOBIN 30.9 pg (27.9-34.1); MEAN CELL HEMOGLOBIN CONCENTR. 34.8 g/dL (32.4-36.7); MEAN CELL VOLUME 88.7 fL (81.5-99.8); MEAN PLATELET VOLUME 9.2 fL (8.7-11.7); PLATELET CLUMPS FLAG 0 (0-99); RED BLOOD CELL COUNT 2.82 10^6/uL (4.18-5.33); RED CELL DISTRIBUTION WIDTH 15.5 % (11.5-15.2)
[2017-05-01 05:27] LABS: PLATELET COUNT 877 10^3/uL (150-400)
[2017-05-01 06:19] LABS: PLATELET ESTIMATE INCREASED (ADEQ)
[2017-05-01] MEDS: ENOXAPARIN 40 MG/0.4 ML SYR SC SCH (09:55)
--- NOTE | 2017-05-01 13:47 | HOSPPROG ---
Hospitalist Progress Note Assessment/Plan: Assessment: 66-year-old female presents with acute pulmonary abscess, with persistent leukocytosis Plan: # Pulmonary abscess / PNA with central necrosis and liquefaction. WBC's persist elevated. CT chest with new pleural effusions, R>L. Discussed with pulm and ID. Stable on 2 LPM. HIV, legionella and pneumococcal Ag neg. -thoracentesis right pleural effusion in am (already received lovenox today) -send fluid for cell count, diff, Cx, further analysis for light's criteria -cont unasyn, ID following -PICC in place -monitor WBC/fever curve -will need f/u chest CT in 4 weeks # Acute metabolic acidosis. Lactic acid 2.5 on arrival, now normalized. # Subclavian stenosis. Right-sided, approximately 70% on chest CT, potentially secondary to compression from above, re-evaluate any symptoms of subclavian steal if they occur with CT angiography. Remains asymptomatic today. Diet. Regular Prophylaxis. High risk patient, Lovenox 40, hold tomorrow for thoracentesis Code. Full Disposition. Cont inpt. Subjective: Pt feels tired. No fevers. Still coughing, wet cough. No CP. No SOB at rest. She doesn't feel much better, but overall stable. Objective: Vital Signs Temp Pulse Resp BP Pulse Ox 36.8 C 72 14 112/81 H 91 L 05/01/17 11:11 05/01/17 11:11 05/01/17 11:11 05/01/17 11:11 05/01/17 11:11 Laboratory Results 05/01/17 05:00 04/28/17 06:11 04/30/17 05/01/17 05/02/17 05:59 05:59 05:59 Intake Total 950 900 Balance 950 900 PT 15.5 SEC (12.0-15.0) H 04/25/17 05:11 INR 1.23 (0.83-1.16) H 04/25/17 05:11 - Physical Exam Constitutional: no apparent distress Eyes: PERRL Ears, Nose, Mouth, Throat: moist mucous membranes Cardiovascular: regular rate and rhythym, no murmur, rub, or gallop Respiratory: no respiratory distress, inspiratory crackles Gastrointestinal: normoactive bowel sounds, soft, non-tender abdomen Skin: warm Musculoskeletal: full muscle strength Neurologic: AAOx3 Psychiatric: interacting appropriately ICD10 Worksheet Patient Problems: Problems Problem Status Onset Empyema lung Acute Severe sepsis Acute Fracture of femoral neck, right, closed Acute Tobacco abuse Acute History of breast cancer in female Chronic History of skin cancer of unknown type Chronic Migraine Chronic
--- NOTE | 2017-05-01 16:03 | PCMIDPN ---
Assessment/Plan: Assessment: R sided pneumonia with effusion and abscess -- no clear etiologic agent although oral deon suspected. Continues on IV Unasyn and although her progress is slow, she has seen resolution of fever and cough and feels more energy. Suspect that she may need pleural drainage upcoming. No other issues. Plan: 1) Continue IV Unasyn for now. 2) Plan for thoracentesis. 3) Likely will need follow up CT scan in the near future. Subjective: Patient is resting in her hospital bed. No new complaints. More energy. Less cough. No fevers. Objective: Unasyn # 6 Vital Signs Temp Pulse Resp BP Pulse Ox 36.8 C 75 20 126/68 H 94 05/01/17 15:14 05/01/17 15:14 05/01/17 15:14 05/01/17 15:14 05/01/17 15:14 Laboratory Results 05/01/17 05:00 04/28/17 06:11 04/30/17 05/01/17 05/02/17 05:59 05:59 05:59 Intake Total 950 900 Balance 950 900 - Physical Exam General Appearance: WD/WN, alert, no apparent distress, non-toxic Respiratory: No lungs clear, No normal breath sounds, No respiratory distress, No crackles, No stridor Cardiac/Chest: regular rate, rhythm, No tachycardia Extremities: non-tender, normal inspection Skin: normal color, warm/dry, No rash Neuro/Psych: alert, normal mood/affect, oriented x 3 ICD10 Worksheet Patient Problems: Problems Problem Status Onset Empyema lung Acute Severe sepsis Acute Fracture of femoral neck, right, closed Acute Tobacco abuse Acute History of breast cancer in female Chronic History of skin cancer of unknown type Chronic Migraine Chronic
--- NOTE | 2017-05-01 16:31 | PDINTPN ---
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 She was treated with azithromycin with initial improvement, but deteriorated. A CXR was abnormal and a chest CT revealed dense consolidation in the RUL with hypodensities consistent with abscess. * Pulmonary abscess- On Unasyn. WBC high, fluctuating but not steadily trending up or down. Afebrile and feeling better. CT shows persistent air bronchograms in some areas, dense consolidation/necrosis as well. A single obstructing lesion is unlikely given the air bronchograms. Her clinical course is as would be expected for an extensive necrotizing pneumonia. CT shows new effusion, which is not unexpected. Plan: Thoracnetesis. Will be performed tomorrow. Hopefully will be heading towards D/C home with IV antibiotics by the weekend. 05/01/17 16:26 Subjective: Feels a bit better. No cough. Objective: Vital Signs Temp Pulse Resp BP Pulse Ox 36.8 C 75 20 126/68 H 94 05/01/17 15:14 05/01/17 15:14 05/01/17 15:14 05/01/17 15:14 05/01/17 15:14 Laboratory Results 05/01/17 05:00 04/28/17 06:11 04/30/17 05/01/17 05/02/17 05:59 05:59 05:59 Intake Total 950 900 Balance 950 900 PT 15.5 SEC (12.0-15.0) H 04/25/17 05:11 INR 1.23 (0.83-1.16) H 04/25/17 05:11 CT: Stable extensive RUL necrotizing pneumonia. New moderate effusion.Images reviewed. Physical Exam - Physical Exam General Appearance: alert EENT: normal ENT inspection Neck: normal inspection Respiratory: decreased breath sounds (right) Cardiac/Chest: regular rate, rhythm, No edema Abdomen: normal bowel sounds, non-tender, soft Skin: normal color, warm/dry Extremities: normal inspection Neuro/Psych: alert, normal mood/affect, oriented x 3 ICD10 Worksheet Patient Problems: Problems Problem Status Onset Empyema lung Acute Severe sepsis Acute Fracture of femoral neck, right, closed Acute Tobacco abuse Acute History of breast cancer in female Chronic History of skin cancer of unknown type Chronic Migraine Chronic
[2017-05-01] MEDS: NADOLOL 20 MG TAB PO SCH (19:55)
[2017-05-01] MEDS: NICOTINE 21 MG/24 HR PATCH TD SCH (19:55)
[2017-05-01] MEDS: NORTRIPTYLINE HCL 25 MG CAP PO SCH ×2 (19:55→20:02)
[2017-05-02] MEDS: AMPICILLIN/SULBACTAM 3 GM in NS 100 ML IV SCH ×5 (00:04→23:06)
[2017-05-02] MEDS: NADOLOL 20 MG TAB PO SCH ×2 (00:14→22:26)
[2017-05-02 05:42] LABS: INR 1.12 (0.83-1.16); PROTIME(PATIENT) 14.3 SEC (12.0-15.0)
[2017-05-02 05:47] LABS: ANION GAP 7 mEq/L (8-16); CALCIUM 8.1 mg/dL (8.5-10.4); CARBON DIOXIDE 33 mEq/l (22-31); CHLORIDE 103 mEq/L (97-110); CREATININE 0.6 mg/dL (0.6-1.0); GLOMERULAR FILTRATION RATE > 60; GLUCOSE 91 mg/dL (70-100); LACTATE DEHYDROGENASE 396 IU/L (313-618); POTASSIUM 3.4 mEq/L (3.5-5.2); SODIUM 143 mEq/L (134-144); TOTAL PROTEIN 5.2 g/dL (6.3-8.2)
[2017-05-02 06:06] LABS: % IMMATURE GRANULYOCYTES 0.7 % (0.0-1.1); ABSOLUTE IMMATURE GRANULOCYTES 0.12 10^3/uL (0.00-0.10); ABSOLUTE NRBC COUNT 0.02 10^3/uL (0-0.01); ADD DIFF? NO; ADD MORPH? NO; ADD SCAN? NO; ATYPICAL LYMPHOCYTE FLAG 50 (0-99); FRAGMENT RBC FLAG 0 (0-99); HEMATOCRIT 22.6 % (38.0-47.0); HEMOGLOBIN 7.4 g/dL (12.6-16.3); LEFT SHIFT FLG 20 (0-99); LIPEMIA HEMOLYSIS FLAG 80 (0-99); MEAN CELL HEMOGLOBIN 29.4 pg (27.9-34.1); MEAN CELL HEMOGLOBIN CONCENTR. 32.7 g/dL (32.4-36.7); MEAN CELL VOLUME 89.7 fL (81.5-99.8); MEAN PLATELET VOLUME 9.3 fL (8.7-11.7); NRBC-AUTO% 0.1 % (0.0-0.2); PLATELET CLUMPS FLAG 0 (0-99); RED BLOOD CELL COUNT 2.52 10^6/uL (4.18-5.33); RED CELL DISTRIBUTION WIDTH 15.3 % (11.5-15.2)
[2017-05-02 06:23] LABS: PLATELET COUNT 900 10^3/uL (150-400)
[2017-05-02 07:33] LABS: PLATELET ESTIMATE INCREASED (ADEQ)
[2017-05-02] MEDS ORDERED: LIDOCAINE 1% 300 MG/30 ML SDV ONE (09:44)
[2017-05-02 11:35] LABS: LD, PLEURAL FLUID 201 IU/L
--- NOTE | 2017-05-02 13:12 | PDINTPN ---
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 She was treated with azithromycin with initial improvement, but deteriorated. A CXR was abnormal and a chest CT revealed dense consolidation in the RUL with hypodensities consistent with abscess. * Pulmonary abscess- On Unasyn. WBC high, fluctuating but not steadily trending up or down. Afebrile and feeling fairly well. A single obstructing lesion is unlikely given the air bronchograms. Her clinical course is as would be expected for an extensive necrotizing pneumonia. CT shows persistent air bronchograms in some areas, dense consolidation/necrosis as well, also had new right effusion, which is not unexpected, tapped and exudative. * Anemia: Stable for the last few days, now down today. No signs active bleeding. Plan: Continue Unasyn. Follow Hgb. Consider Lasix, as her weight is up and she has bilateral effusions. Hopefully will be heading towards D/C home with IV antibiotics by the weekend. 05/02/17 13:29 Objective: Vital Signs Temp Pulse Resp BP Pulse Ox 36.1 C 75 14 109/84 H 90 L 05/02/17 11:28 05/02/17 11:28 05/02/17 11:28 05/02/17 11:28 05/02/17 11:28 Microbiology 05/02/17 10:45 Gram Stain - Final Thoracic Fluid - Aspirate Laboratory Results 05/02/17 05:15 05/02/17 05:15 05/01/17 05/02/17 05/03/17 05:59 05:59 05:59 Intake Total 900 820 Output Total 370 1000 Balance 900 450 -1000 PT 14.3 SEC (12.0-15.0) 05/02/17 05:15 INR 1.12 (0.83-1.16) 05/02/17 05:15 Laboratory Tests 05/02/17 10:45 Pleural pH 8.0 H Pleural WBC 426 Pleural RBC 168 Pleural LDH 201 Pleural Glucose 94 Physical Exam - Physical Exam General Appearance: alert, no apparent distress EENT: normal ENT inspection Neck: normal inspection Respiratory: lungs clear (rales bilaterally) Cardiac/Chest: regular rate, rhythm, edema (trace) Abdomen: normal bowel sounds, non-tender, soft Skin: normal color, warm/dry Extremities: normal inspection Neuro/Psych: alert, normal mood/affect, oriented x 3 ICD10 Worksheet Patient Problems: Problems Problem Status Onset Empyema lung Acute Severe sepsis Acute Fracture of femoral neck, right, closed Acute Tobacco abuse Acute History of breast cancer in female Chronic History of skin cancer of unknown type Chronic Migraine Chronic
--- NOTE | 2017-05-02 17:05 | HOSPPROG ---
Hospitalist Progress Note Assessment/Plan: * Necrotizing pneumonia with pulmonary abscess -IV Unasyn * Pleural effusion - parapneumonia/exudative s/p thoracentesis * Worsening anemia -no evidence for bleeding -follow for transfusion needs * Edema -gentle IV lasix * Thrombocytosis - due to inflammation Subjective: Frustrated regarding slow improvement Objective: Vital Signs Temp Pulse Resp BP Pulse Ox 36.8 C 82 20 117/71 94 05/02/17 15:00 05/02/17 15:00 05/02/17 15:00 05/02/17 15:00 05/02/17 15:00 Microbiology 05/02/17 10:45 Gram Stain - Final Thoracic Fluid - Aspirate Laboratory Results 05/02/17 05:15 05/02/17 05:15 05/01/17 05/02/17 05/03/17 05:59 05:59 05:59 Intake Total 900 820 740 Output Total 370 1500 Balance 900 450 -760 PT 14.3 SEC (12.0-15.0) 05/02/17 05:15 INR 1.12 (0.83-1.16) 05/02/17 05:15 CXR viewed, my personal interpretation is - significant right pneumonia CT chest - necrotizing pulm abscess - Physical Exam Constitutional: no apparent distress, appears nourished, not in pain Cardiovascular: regular rate and rhythym, no murmur, rub, or gallop Respiratory: no respiratory distress, no rales or rhonchi, clear to auscultation Gastrointestinal: normoactive bowel sounds, soft, non-tender abdomen, no palpable masses Skin: no rashes or abrasions, no fluctuance, no induration Neurologic: AAOx3, sensation intact bilaterally Psychiatric: interacting appropriately, not anxious, not encephalopathic, thought process linear ICD10 Worksheet Patient Problems: Problems Problem Status Onset Empyema lung Acute Severe sepsis Acute Fracture of femoral neck, right, closed Acute Tobacco abuse Acute History of breast cancer in female Chronic History of skin cancer of unknown type Chronic Migraine Chronic
--- NOTE | 2017-05-02 18:33 | PCMIDPN ---
Assessment/Plan: Assessment/Plan: * Necrotizing right upper lobe pneumonia with concomitant lung abscess: Preliminary thoracentesis findings do not suggest concomitant empyema. Suspect etiology for clinical findings due to mixed oral deon. Continue Unasyn. Fever has resolved and overall malaise has decreased. Favor continued treatment with Unasyn with repeat CT scan over time (for example at 3 weeks of therapy) to reassess abscess. If fails to improve, may ultimately need surgical resection or discussion with IR regarding percutaneous drainage although risk of pleural fistula formation possible. When ready to transition to outpatient therapy, considerations for ongoing treatment would include daily ertapenem versus ceftriaxone daily with concomitant oral metronidazole. * Positive blood culture: 1/4 bottles positive with isolate most suggestive of Brevibacterium. Suspect this most likely represent contaminant rather than true pathogen as this would be unusual deon for lung abscess. 05/02/17 18:29 05/02/17 18:36 Subjective: Overall patient feels significantly better. No further fever and malaise significantly reduced. No significant cough or shortness of breath. Objective: Vital Signs Temp Pulse Resp BP Pulse Ox 36.8 C 82 20 117/71 94 05/02/17 15:00 05/02/17 15:00 05/02/17 15:00 05/02/17 15:00 05/02/17 15:00 Microbiology 05/02/17 10:45 Gram Stain - Final Thoracic Fluid - Aspirate Laboratory Results 05/02/17 05:15 05/02/17 05:15 05/01/17 05/02/17 05/03/17 05:59 05:59 05:59 Intake Total 797 311 2416 Output Total 370 1700 Balance 900 450 -610 Unasyn # 7 Blood cultures 04/24/2017/4 bottles possible Brevibacterium Laboratory Tests 05/02/17 05/02/17 10:45 10:45 Fluid pH 7.61 Fluid Total Protein 2.1 Pleural pH 8.0 H Pleural WBC 426 Pleural RBC 168 Pleural Neutrophils 60 Pleural Lymphocytes % 36 Pleural LDH 201 Pleural Glucose 94 - Physical Exam General Appearance: alert, no apparent distress EENT: No thrush, No conjunctival petechiae Respiratory: crackles (Right upper lung field), No respiratory distress Cardiac/Chest: regular rate, rhythm Abdomen: non-tender, No distended Skin: No embolic lesions - Line/s RUE PICC Lines: No drainage, No erythema ICD10 Worksheet Patient Problems: Problems Problem Status Onset Empyema lung Acute Severe sepsis Acute Fracture of femoral neck, right, closed Acute Tobacco abuse Acute History of breast cancer in female Chronic History of skin cancer of unknown type Chronic Migraine Chronic
[2017-05-02] MEDS: NORTRIPTYLINE HCL 25 MG CAP PO SCH (19:53)
[2017-05-02] MEDS: NICOTINE 21 MG/24 HR PATCH TD SCH (19:53)
[2017-05-03 05:06] LABS: ALANINE AMINOTRANSFERASE 26 IU/L (9-52); ALBUMIN 2.2 g/dL (3.5-5.0); ALKALINE PHOSPHATASE 93 IU/L (38-126); ANION GAP 13 mEq/L (8-16); ASPARTATE AMINOTRANSFERASE 17 IU/L (14-46); BILIRUBIN,TOTAL 0.1 mg/dL (0.1-1.4); BILIRUBIN-UNCONJUGATED 0.1 mg/dL (0.0-1.1); CALCIUM 8.5 mg/dL (8.5-10.4); CARBON DIOXIDE 32 mEq/l (22-31); CHLORIDE 100 mEq/L (97-110); CREATININE 0.7 mg/dL (0.6-1.0); GLOMERULAR FILTRATION RATE > 60; GLUCOSE 91 mg/dL (70-100); POTASSIUM 4.8 mEq/L (3.5-5.2); SODIUM 145 mEq/L (134-144); TOTAL PROTEIN 5.6 g/dL (6.3-8.2)
[2017-05-03 05:13] LABS: % IMMATURE GRANULYOCYTES 0.6 % (0.0-1.1); ABSOLUTE IMMATURE GRANULOCYTES 0.12 10^3/uL (0.00-0.10); ADD DIFF? NO; ADD MORPH? NO; ADD SCAN? NO; ATYPICAL LYMPHOCYTE FLAG 40 (0-99); FRAGMENT RBC FLAG 0 (0-99); HEMATOCRIT 26.4 % (38.0-47.0); HEMOGLOBIN 8.4 g/dL (12.6-16.3); LEFT SHIFT FLG 10 (0-99); LIPEMIA HEMOLYSIS FLAG 80 (0-99); MEAN CELL HEMOGLOBIN 28.6 pg (27.9-34.1); MEAN CELL HEMOGLOBIN CONCENTR. 31.8 g/dL (32.4-36.7); MEAN CELL VOLUME 89.8 fL (81.5-99.8); MEAN PLATELET VOLUME 9.2 fL (8.7-11.7); PLATELET CLUMPS FLAG 0 (0-99); RED BLOOD CELL COUNT 2.94 10^6/uL (4.18-5.33); RED CELL DISTRIBUTION WIDTH 15.3 % (11.5-15.2)
[2017-05-03 05:15] LABS: PLATELET COUNT 866 10^3/uL (150-400)
[2017-05-03] MEDS: AMPICILLIN/SULBACTAM 3 GM in NS 100 ML IV SCH ×4 (05:59→23:46)
[2017-05-03 06:19] LABS: PLATELET ESTIMATE INCREASED (ADEQ)
[2017-05-03] MEDS: FUROSEMIDE 20 MG/2 ML VIAL IVP SCH ×2 (10:23→15:46)
[2017-05-03] MEDS: ENOXAPARIN 40 MG/0.4 ML SYR SC SCH (10:23)
--- NOTE | 2017-05-03 10:23 | PCMIDPN ---
Assessment/Plan: # Right upper lobe necrotizing infection with associated to abscesses 4.1 x 4.8 and 3.1 x 3.5cm suspect oral origin. 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 Still with mild hypoxia. Thoracentesis unrevealing for a pathogen --continue Unasyn for now. Outpatient erta vs ceftriaxone/flagyl --surgical consult today --whether or not surgery indicated, may need additional eval to try to obtain specific pathogen --reviewed need for prolonged IV antibiotics, pICC Line already in place # Positive blood culture: 1/ bottles positive with isolate most suggestive of Brevibacterium. Suspect this most likely represent contaminant rather than true pathogen as this would be unusual deon for lung abscess. meds Unasyn 3gm IV q6h #[address] Brooks Subjective: still feeling weak fevers resolved no diarrhea Objective: Vital Signs Temp Pulse Resp BP Pulse Ox 36.7 C 86 16 120/77 91 L 05/03/17 07:39 05/03/17 07:39 05/03/17 07:39 05/03/17 07:39 05/03/17 07:39 Microbiology 05/02/17 10:45 Gram Stain - Final Thoracic Fluid - Aspirate Laboratory Results 05/03/17 04:20 05/03/17 04:20 05/02/17 05/03/17 05/04/17 05:59 05:59 05:59 Intake Total 820 1440 Output Total 370 2300 200 Balance 450 -860 -200 - Physical Exam General Appearance: alert, no apparent distress EENT: dry mucous membranes, other (good dentions) Respiratory: crackles (R upper hemithorax), No accessory muscle use Neck: supple Cardiac/Chest: regular rate, rhythm Abdomen: non-tender, soft Skin: No rash Neuro/Psych: alert, normal mood/affect, oriented x 3 - Line/s RUE PICC Lines: No drainage, No erythema ICD10 Worksheet Patient Problems: Problems Problem Status Onset Empyema lung Acute Severe sepsis Acute Fracture of femoral neck, right, closed Acute Tobacco abuse Acute History of breast cancer in female Chronic History of skin cancer of unknown type Chronic Migraine Chronic
[2017-05-03] MEDS ORDERED: HYDROCODONE/APAP 5/325 TAB PO PRN (13:36)
--- NOTE | 2017-05-03 16:34 | ASMTCMCOM ---
CM Note CM Note Notes: Dc date unclear, possible sx consult. Dori at [facility] notified. Current DC Plan: Dc home w/IV anbiotics ([facility]) Date Signed: 05/03/2017 04:33 PM Electronically Signed By:Yelitza Chaney RN
--- NOTE | 2017-05-03 17:00 | PDINTPN ---
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 She was treated with azithromycin with initial improvement, but deteriorated. A CXR was abnormal and a chest CT revealed dense consolidation in the RUL with hypodensities consistent with abscess. * Pulmonary abscess- On Unasyn. WBC high, fluctuating but not steadily trending up or down. Afebrile and feeling fairly well. A single obstructing lesion is unlikely given the air bronchograms. Her clinical course is as would be expected for an extensive necrotizing pneumonia. CT shows persistent air bronchograms in some areas, dense consolidation/necrosis as well, also had new right effusion, which is not unexpected, tapped and exudative. * Anemia: Stable for the last few days, now up today. No signs active bleeding. Plan: Continue Unasyn. Follow Hgb. Given the slow improvemtn, I'll proceed with bronchoscopy tomorrow, then I think she could be discharged on IV antibiotics. 05/02/17 13:29 05/03/17 16:59 Subjective: Feels fairly well, minimal cough, energy pretty good, no dyspnea. Objective: Vital Signs Temp Pulse Resp BP Pulse Ox 37.4 C 81 16 105/63 94 05/03/17 14:42 05/03/17 14:42 05/03/17 14:42 05/03/17 14:42 05/03/17 14:42 Microbiology 05/02/17 10:45 Gram Stain - Final Thoracic Fluid - Aspirate Laboratory Results 05/03/17 04:20 05/03/17 04:20 05/02/17 05/03/17 05/04/17 05:59 05:59 05:59 Intake Total 820 1440 450 Output Total 370 2300 1000 Balance 450 -860 -550 PT 14.3 SEC (12.0-15.0) 05/02/17 05:15 INR 1.12 (0.83-1.16) 05/02/17 05:15 Physical Exam - Physical Exam General Appearance: no apparent distress EENT: normal ENT inspection Neck: normal inspection Respiratory: decreased breath sounds (right) Cardiac/Chest: normal peripheral pulses, regular rate, rhythm, No edema Abdomen: normal bowel sounds, non-tender, soft Skin: normal color, warm/dry Extremities: normal inspection Neuro/Psych: alert, normal mood/affect, oriented x 3 ICD10 Worksheet Patient Problems: Problems Problem Status Onset Empyema lung Acute Severe sepsis Acute Fracture of femoral neck, right, closed Acute Tobacco abuse Acute History of breast cancer in female Chronic History of skin cancer of unknown type Chronic Migraine Chronic
--- NOTE | 2017-05-03 17:30 | HOSPPROG ---
Hospitalist Progress Note Assessment/Plan: * Necrotizing pneumonia with pulmonary abscess -suspect oral deon (anaerobe) - possible due to sedation from recent colonoscopy -surgery to see today - but likely no surgery needed acutely -possible bronchoscopy in am -IV Unasyn -possible discharge home on IV abx soon with close OP follow-up * Pleural effusion - parapneumonia/exudative s/p thoracentesis * Worsening anemia -no evidence for bleeding -follow for transfusion needs * Thrombocytosis - due to inflammation * Tobacco dependence -recently quit smoking - continue nicotine patch Subjective: no new complaints, feels relatively well Objective: Vital Signs Temp Pulse Resp BP Pulse Ox 37.4 C 81 16 105/63 94 05/03/17 14:42 05/03/17 14:42 05/03/17 14:42 05/03/17 14:42 05/03/17 14:42 Microbiology 05/02/17 10:45 Gram Stain - Final Thoracic Fluid - Aspirate Laboratory Results 05/03/17 04:20 05/03/17 04:20 05/02/17 05/03/17 05/04/17 05:59 05:59 05:59 Intake Total 820 1440 450 Output Total 370 2300 1000 Balance 450 -860 -550 PT 14.3 SEC (12.0-15.0) 05/02/17 05:15 INR 1.12 (0.83-1.16) 05/02/17 05:15 Case d/w Dr. Lau and Dr. Manriquez - considering bronch - Physical Exam Constitutional: no apparent distress, appears nourished, not in pain Cardiovascular: regular rate and rhythym, no murmur, rub, or gallop Respiratory: no respiratory distress, no rales or rhonchi, clear to auscultation Gastrointestinal: normoactive bowel sounds, soft, non-tender abdomen, no palpable masses Skin: no rashes or abrasions, no fluctuance, no induration Neurologic: AAOx3, sensation intact bilaterally Psychiatric: interacting appropriately, not anxious, not encephalopathic, thought process linear ICD10 Worksheet Patient Problems: Problems Problem Status Onset Empyema lung Acute Severe sepsis Acute Fracture of femoral neck, right, closed Acute Tobacco abuse Acute History of breast cancer in female Chronic History of skin cancer of unknown type Chronic Migraine Chronic
--- NOTE | 2017-05-03 19:08 | GCON ---
[f rep st] CONSULTATION DATE OF CONSULTATION: 05/03/2017 CHIEF COMPLAINT: Right lung abscess. HISTORY OF PRESENT ILLNESS: This is an otherwise fairly healthy 66-year-old female who was admitted to the medical service now on the of this month. Briefly, at that time, she presented to the ED complaining of upper respiratory tract type symptoms since February with an ongoing cough. She was treated as an outpatient with azithromycin and had completed that course 5 days prior to presenting t o the emergency department complaining of worsening symptoms, night sweats, and just an overall worse kalpana of her overall character. Prior to presenting to the emergency department, she had an outpatien t chest x-ray as well as an outpatient CT scan of her chest which showed a dense right upper lobe pne umonia. The patient was subsequently admitted to the medical service and has been on antibiotic ther apy since that time. Over the time the patient continued to fever and had a significant leukocytosis to 30,000. She subsequently had repeat CT scan imaging performed on the afternoon of the which showed a new right lung abscess, the largest of which measured 4 x 4.8 cm in the right anterior upper lobe which was new. She also had a small effusion on that side as well. She subsequently underwent ultrasound-guided thoracentesis on the , analysis of which showed no organisms within the pleural fluid. Since that time, the patient's fevers have broken. Clinically she feels well. However, she still has a persistent leukocytosis to 19,000 and remains on IV antibiotic therapy. I was asked to evaluate the patient and render my opinion as to whether or not this patient requires more invasive t herapy for her lung abscess. On my consultation, the patient states that she feels well. She just g ot out of the shower. She denies having any shortness of breath and states that she has felt well cl aiming "I could go to the mall" since the fevers broke a few days prior. She denies having any chest pain and other than feeling somewhat fatigued, has no complaints. She denies having a cough and sta ant that she overall feels well. Fevers broke approximately 3 days ago and she has been afebrile sin ce, despite her persistent leukocytosis. PAST MEDICAL HISTORY: Breast cancer in 2007, status post lumpectomy. She continues oral chemotherap y since that time. Migraine headaches and cataracts. PAST SURGICAL HISTORY: Right hip ORIF, breast lumpectomy, cataract surgery bilaterally, abdominal woodson rgery unknown for a bleeding gastric ulcer many years ago. FAMILY HISTORY: Lymphoma. Brother with lung cancer. SOCIAL HISTORY: Current smoker. Denies illicit alcohol and drug use. 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 ALLERGIES: Sulfa. REVIEW OF SYSTEMS: A full 10-point review was performed and unless explicitly stated above, is other goncalves negative. PHYSICAL EXAM: VITAL SIGNS: Today temperature 36.4, heart rate 83, blood pressure 99/73, she is 92% currently on room air. CONSTITUTIONAL: She appears to be in no apparent distress. She appears com fortable. EYES: Her pupils are equal, round, and reactive to light and accommodation. She has anic teric sclerae and her extraocular movements are intact. EARS, NOSE, MOUTH, AND THROAT: Her mucous m embranes appear dry. Her hearing is normal. Her ears appear normal and she has no oral mucosal ulce rs. CARDIOVASCULAR: She has a regular rate and rhythm without any murmurs. RESPIRATORY: She appea rs to be in no respiratory distress. She has a distant lung sounds in the superior right lung but sh e has no rales or rhonchi and she is otherwise clear to auscultation in the contralateral lung. GI: She has normoactive bowel sounds. She is soft, nondistended, nontender without rebound tenderness o r guarding. SKIN: Warm. Normal color without rashes or abrasions. MUSCULOSKELETAL: She has full muscle strength. No muscle tenderness. Normal joint range of motion and no effusions. NEUROLOGIC: She is alert and oriented x3. Her cranial nerves 2-12 appear intact. She has no weakness. No numb ness and no asterixis. PSYCH: She is interacting appropriately. She is a little anxious. She is n ot encephalopathic and her thought process is linear. LYMPH/HEME/IMMUNOLOGIC: She has no cervical, supraclavicular or groin lymphadenopathy appreciated. LABS: Leukocytosis today to 19,000 with a left shift. H and H stable at 8 and 26. Chemistry is lar elaine unremarkable. Imaging includes multiple chest x-rays from both the and the 9th as well as a CT chest performed on the . All of these images were personally reviewed. The CT scan on the 7t h is consistent with a right lung abscess, the largest of what appears to be 2 coalescing lesions is 4.8 x 4 cm. ASSESSMENT AND PLAN: 66-year-old female here with what appears to be a right-sided necrotizing pneum onia, now with an abscess in that right anterior upper lobe. On my assessment, it appears that the p atient is clinically improving given her improvement in symptoms and lack of fevers over the last few days. I reviewed the patient's images and discussed them with her today. I also told her that the vast majority of lung abscesses typically resolve with IV antibiotic therapy, albeit sometimes prolon ged over the course of 4-6 weeks. I do not see anything either clinically or on imaging at this poin t in time, including large size and/or sides of hemorrhage which would make me want to expedite brian drummond the patient to surgery. I agree with continuing persistent antibiotics for the time being and reim aging the patient next week to re-evaluate the lung abscesses. I feel that if the abscesses have got ten smaller and have not grown significantly and the patient continues to be clinically stable, we co uld likely transition to an outpatient IV antibiotic therapy at that time. If they have grown or the patient clinically worsens, I did discuss with her that she would likely have failed conservative tr eatment at that point in time, and would likely need more invasive approaches. /[id number]/MODL
[2017-05-03] MEDS: NADOLOL 20 MG TAB PO SCH (20:05)
[2017-05-03] MEDS: NORTRIPTYLINE HCL 25 MG CAP PO SCH (20:06)
[2017-05-03] MEDS: NICOTINE 21 MG/24 HR PATCH TD SCH (20:06)
[2017-05-04] MEDS: AMPICILLIN/SULBACTAM 3 GM in NS 100 ML IV SCH ×4 (05:07→23:33)
[2017-05-04 05:23] LABS: % IMMATURE GRANULYOCYTES 0.6 % (0.0-1.1); ADD DIFF? NO; ADD MORPH? NO; ADD SCAN? NO; ATYPICAL LYMPHOCYTE FLAG 0 (0-99); FRAGMENT RBC FLAG 0 (0-99); HEMATOCRIT 25.3 % (38.0-47.0); HEMOGLOBIN 8.5 g/dL (12.6-16.3); LEFT SHIFT FLG 20 (0-99); LIPEMIA HEMOLYSIS FLAG 80 (0-99); MEAN CELL HEMOGLOBIN 29.9 pg (27.9-34.1); MEAN CELL HEMOGLOBIN CONCENTR. 33.6 g/dL (32.4-36.7); MEAN CELL VOLUME 89.1 fL (81.5-99.8); PLATELET CLUMPS FLAG 0 (0-99); RED BLOOD CELL COUNT 2.84 10^6/uL (4.18-5.33); RED CELL DISTRIBUTION WIDTH 15.7 % (11.5-15.2)
[2017-05-04 05:29] LABS: PLATELET COUNT 929 10^3/uL (150-400)
[2017-05-04 05:40] LABS: ANION GAP 8 mEq/L (8-16); CALCIUM 8.4 mg/dL (8.5-10.4); CARBON DIOXIDE 33 mEq/l (22-31); CHLORIDE 100 mEq/L (97-110); CREATININE 0.6 mg/dL (0.6-1.0); GLOMERULAR FILTRATION RATE > 60; GLUCOSE 89 mg/dL (70-100); POTASSIUM 3.7 mEq/L (3.5-5.2); SODIUM 141 mEq/L (134-144)
[2017-05-04 06:37] LABS: PLATELET ESTIMATE INCREASED (ADEQ)
--- NOTE | 2017-05-04 08:16 | SOAPPROG ---
SOAP Progress Note Assessment/Plan: Assessment/Plan: 66 Y F necrotizing PNA, lung abscess. Seen and examined with Dr. Rodríguez this am. WBC's down today. This promising for success of conservative management. Per pt, likely bronchoscopy today. Will need repeat imaging at some point--probably next week. Surgery a possibility if doesn't do well/abscess persists worsens. S: no complaints. no sob. no pain. no shakes or chills. O: alert, nad, sleeping comfortably and easily awakened, nontoxic appearing. lung/card exam per Dr. Rodríguez. 05/04/17 08:12 Objective: Vital Signs Temp Pulse Resp BP Pulse Ox 36.9 C 87 16 111/67 93 05/04/17 07:37 05/04/17 07:37 05/04/17 07:37 05/04/17 07:37 05/04/17 07:37 Microbiology 05/02/17 10:45 Gram Stain - Final Thoracic Fluid - Aspirate Laboratory Results 05/04/17 05:11 05/04/17 05:11 05/03/17 05/04/17 05/05/17 05:59 05:59 05:59 Intake Total 1440 1070 Output Total 2300 1950 Balance -860 -880 PT 14.3 SEC (12.0-15.0) 05/02/17 05:15 INR 1.12 (0.83-1.16) 05/02/17 05:15 ICD10 Worksheet Patient Problems: Problems Problem Status Onset Empyema lung Acute Severe sepsis Acute Fracture of femoral neck, right, closed Acute Tobacco abuse Acute History of breast cancer in female Chronic History of skin cancer of unknown type Chronic Migraine Chronic
[2017-05-04] MEDS ORDERED: LIDOCAINE 2% JELLY 5 ML TUBE ONE (10:30)
[2017-05-04] MEDS ORDERED: BENZOCAINE UNIT DOSE SPRAY HURRICAINE MM ONE (10:31)
[2017-05-04] MEDS ORDERED: fentaNYL 100 MCG/2 ML INJ ONE (10:32)
[2017-05-04] MEDS ORDERED: MIDAZOLAM 2 MG/2 ML VIAL ONE (10:32)
[2017-05-04] MEDS ORDERED: LIDOCAINE 1% 300 MG/30 ML SDV ONE (10:51)
--- NOTE | 2017-05-04 10:57 | PCMIDPN ---
Assessment/Plan: # Right upper lobe necrotizing infection with associated to abscesses 4.1 x 4.8 and 3.1 x 3.5cm suspect oral origin. 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 Patient is to remain on Unasyn until the day of discharge will give 1 dose of ertapenem prior to discharge. --tentatively planned for discharge tomorrow --will plan follow up with Dr. Johnston in 1 week # Positive blood culture: 1/4 bottles positive with isolate most suggestive of Brevibacterium. Suspect this most likely represent contaminant rather than true pathogen as this would be unusual deon for lung abscess. meds Unasyn 3gm IV q6h #[address] Brooks and DR. Manriquez Subjective: Patient does not quite feel ready to go home Objective: Vital Signs Temp Pulse Resp BP Pulse Ox 36.9 C 90 18 115/76 93 05/04/17 10:34 05/04/17 10:34 05/04/17 10:34 05/04/17 10:34 05/04/17 10:34 Microbiology 05/02/17 10:45 Gram Stain - Final Thoracic Fluid - Aspirate Laboratory Results 05/04/17 05:11 05/04/17 05:11 05/03/17 05/04/17 05/05/17 05:59 05:59 05:59 Intake Total 1440 1070 Output Total 2300 1950 300 Balance -860 -880 -300 - Physical Exam General Appearance: alert, no apparent distress EENT: No thrush Respiratory: crackles (Right upper lobe), No accessory muscle use Cardiac/Chest: regular rate, rhythm Extremities: No pedal edema Skin: No rash Neuro/Psych: alert, normal mood/affect, oriented x 3 - Time Spent With Patient Time Spent with Patient: greater than 25 minutes Time Spent with Patient: Greater than 25 minutes spent on this patients care, greater than 50% of time spent counseling, educating, and coordinating care regarding the above mentioned plan. ICD10 Worksheet Patient Problems: Problems Problem Status Onset Empyema lung Acute Severe sepsis Acute Fracture of femoral neck, right, closed Acute Tobacco abuse Acute History of breast cancer in female Chronic History of skin cancer of unknown type Chronic Migraine Chronic
--- NOTE | 2017-05-04 12:07 | PDINTPN ---
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 She was treated with azithromycin with initial improvement, but deteriorated. A CXR was abnormal and a chest CT revealed dense consolidation in the RUL with hypodensities consistent with abscess. * Pulmonary abscess- On Unasyn. WBC high but the lowest it's been since admission. Afebrile and feeling fairly well. A single obstructing lesion is unlikely given the air bronchograms. Her clinical course is as would be expected for an extensive necrotizing pneumonia. CT shows persistent air bronchograms in some areas, dense consolidation/necrosis as well, also had new right effusion, which is not unexpected, tapped and exudative. * Anemia: Stable for the last few days, now up today. No signs active bleeding. Plan: Continue Unasyn. Follow Hgb. OK to discharge home after recovers from bronch and gets a CXR. Guaifenesin and frequent incentive felicita as an outpatient. Follow-up with ID or me within the next 7-10 days. 05/04/17 12:08 Subjective: Feels fairly well, strength good. Objective: Vital Signs Temp Pulse Resp BP Pulse Ox 36.9 C 92 14 134/74 H 92 05/04/17 10:34 05/04/17 11:59 05/04/17 11:59 05/04/17 11:59 05/04/17 11:59 Microbiology 05/02/17 10:45 Gram Stain - Final Thoracic Fluid - Aspirate Laboratory Results 05/04/17 05:11 05/04/17 05:11 05/03/17 05/04/17 05/05/17 05:59 05:59 05:59 Intake Total 1440 1070 150 Output Total 2300 1950 300 Balance -860 -880 -150 PT 14.3 SEC (12.0-15.0) 05/02/17 05:15 INR 1.12 (0.83-1.16) 05/02/17 05:15 Physical Exam - Physical Exam EENT: normal ENT inspection Neck: full range of motion Respiratory: lungs clear, normal breath sounds, decreased breath sounds (right lung) Cardiac/Chest: regular rate, rhythm, edema Abdomen: non-tender, soft Skin: warm/dry Extremities: non-tender Neuro/Psych: alert, normal mood/affect, oriented x 3 ICD10 Worksheet Patient Problems: Problems Problem Status Onset Empyema lung Acute Severe sepsis Acute Fracture of femoral neck, right, closed Acute Tobacco abuse Acute History of breast cancer in female Chronic History of skin cancer of unknown type Chronic Migraine Chronic
--- NOTE | 2017-05-04 12:38 | GPN ---
[f rep st] PROCEDURE NOTE DATE OF PROCEDURE: 05/04/2017 PROCEDURE: Flexible fiberoptic bronchoscopy. INDICATION FOR PROCEDURE: Necrotizing pneumonia; rule-out endobronchial lesion causing obstruction. PROCEDURE NOTE: The risks and benefits of the procedure were explained to the patient, who agreed to proceed. The entire procedure was performed in a negative pressure room. After an appropriate time -out, the patient's oropharynx was anesthetized with topical anesthetic, and a bite block was placed between her teeth. The bronchoscope was then advanced through the bite block into the vocal cords, w hich moved normally. 1% lidocaine was used topically on the airways for anesthesia. The bronchoscop e was advanced through the vocal cords into the trachea. I advanced directly to the right upper lobe , where purulent sputum could be seen draining from the anterior segment. The mucosa was indurated a nd slightly friable throughout the airways of the right upper lobe and extending a bit down the bronc hus intermedius. I examined all the airways of both lungs bilaterally, then returned to the right up per lobe, where I engaged the anterior segment and did a small-volume lavage, returning purulent flui d. There was no significant bleeding. I was able to examine the apical and posterior segments, and they had just minimal secretions and no endobronchial lesions. After washing the anterior segment, I was able to confirm that there were no endobronchial lesions, at least to the 1st subsegment. I the n advanced a protected microbiology brush into the anterior segment and took a brushing from that are a. I then continued suction, and washed the right upper lobe, primarily the anterior segment. A sma ll amount of purulent material continued to come from the anterior segment. The patient tolerated the procedure well with the exception of transient falls in her saturations to the upper 80s during coughing. Her saturations improved at the end of the procedure. She received 3 mg of Versed and 150 mcg of fentanyl intravenously for analgesia and sedation. Specimens will be se nt for microbiology, culture, and cytology. Estimated blood loss was less than 1 mL. /[id number]/MODL
--- NOTE | 2017-05-04 12:49 | PDIAF ---
- Diagnosis Diagnosis: anaerobic lung abscess Code Status: Full Code - Medication Management Discharge Medications: Medications to Continue on Transfer Nadolol [Nadolol 20 mg (*)] 40 mg PO HS 07/28/15 [Last Taken 04/23/17] Nortriptyline HCl [Pamelor 25 mg (*)] 75 mg PO HS 07/28/15 [Last Taken 04/23/17] Acetaminophen [Tylenol 325mg (*)] 650 mg PO Q6 PRN #0 tab 07/30/15 [Last Taken 04/23/17] Nicotine [Nicoderm Cq 21 mg (*)] 21 mg TD DAILY #1 box 07/30/15 [Last Taken 07/10] Herbals/Supplements -Info Only 1 ea PO HS 04/24/17 [Last Taken 04/23/17] Long-Term Antibiotics: ertapenem 1gm IV daily Long-Term Antibiotic Stop Date: 05/23/17 Discharge Medications: Refer to the Discharge Home Medication list for PRN reason. PICC Care - Routine: Yes - Orders Services needed: Home Care, Registered Nurse, Physical Therapy Home Care Face to Face: I certify that this patient was under my care and that I had the required [id number] encounter meeting the encounter requirements on the discharge day. My findings support the fact that the patient is homebound as defined in Home Care Face to Face Continued: CMS Chapter 7 Medicare Benefits Manual 30.1.1 , The condition of the patient is such that there exists a normal inability to leave home and consequently, leaving home would require a considerable and taxing effort. Isolation Type: None - Labs/Radiology CBC w/diff Date: 05/06/17 (Weekly Saturday) CMP Date: 05/06/17 (Weekly Saturday) Call or Fax Lab and Imaging Results to: manish johnston MD [facility] at fax [phone] - Follow Up Care Current Providers and Referrals: Mora Anna MD [Primary Care Provider] - As per Instructions Manish Johnston MD [Medical Doctor] -
[2017-05-04] MEDS: ENOXAPARIN 40 MG/0.4 ML SYR SC SCH (13:04)
[2017-05-04] MEDS: ACETAMINOPHEN 325 MG TAB PO PRN (13:05)
--- NOTE | 2017-05-04 13:14 | HOSPPROG ---
Hospitalist Progress Note Assessment/Plan: * Necrotizing pneumonia with pulmonary abscess -suspect oral deon (anaerobe) - possible due to sedation from recent colonoscopy -no acute surgical need - continue medical management -s/p bronchoscopy - cultures pending -IV Unasyn -change to IV Invanz at discharge -consider repeat imaging before discharge * Pleural effusion - parapneumonia/exudative s/p thoracentesis * Anemia - stable -no evidence for bleeding - suspect ACD * Thrombocytosis - due to inflammation * Tobacco dependence -recently quit smoking - continue nicotine patch Subjective: No new complaints. Objective: Vital Signs Temp Pulse Resp BP Pulse Ox 36.8 C 94 16 126/82 H 93 05/04/17 12:49 05/04/17 12:49 05/04/17 12:49 05/04/17 12:49 05/04/17 12:49 Microbiology 05/02/17 10:45 Gram Stain - Final Thoracic Fluid - Aspirate Laboratory Results 05/04/17 05:11 05/04/17 05:11 05/03/17 05/04/17 05/05/17 05:59 05:59 05:59 Intake Total 1440 1070 400 Output Total 2300 1950 300 Balance -860 -880 100 PT 14.3 SEC (12.0-15.0) 05/02/17 05:15 INR 1.12 (0.83-1.16) 05/02/17 05:15 case d/w dr. mendez regarding discharge plan Repeat CXR post bronchoscopy - Physical Exam Cardiovascular: regular rate and rhythym, no murmur, rub, or gallop Respiratory: no respiratory distress, no rales or rhonchi, clear to auscultation Gastrointestinal: normoactive bowel sounds, soft, non-tender abdomen, no palpable masses Skin: no rashes or abrasions, no fluctuance, no induration Neurologic: AAOx3, sensation intact bilaterally Psychiatric: interacting appropriately, not anxious, not encephalopathic, thought process linear ICD10 Worksheet Patient Problems: Problems Problem Status Onset Empyema lung Acute Severe sepsis Acute Fracture of femoral neck, right, closed Acute Tobacco abuse Acute History of breast cancer in female Chronic History of skin cancer of unknown type Chronic Migraine Chronic
--- NOTE | 2017-05-04 15:51 | ASMTCMCOM ---
CM Note CM Note Notes: Spoke w/MD, pt likely to dc tomorrow with [facility] home infusion, [facility] notified and pt aware. Date Signed: 05/04/2017 03:50 PM Electronically Signed By:Yelitza Chaney RN
[2017-05-04] MEDS ORDERED: NS 1,000 ML IV ONE (16:29)
[2017-05-04 17:42] LABS: HEMATOCRIT 25.3 % (38.0-47.0); HEMOGLOBIN 8.7 g/dL (12.6-16.3)
[2017-05-04] MEDS: guaiFENesin 600 MG TAB.ER PO SCH (20:43)
[2017-05-04] MEDS: NORTRIPTYLINE HCL 25 MG CAP PO SCH (20:43)
[2017-05-04] MEDS: NICOTINE 21 MG/24 HR PATCH TD SCH (20:44)
[2017-05-04] MEDS: NADOLOL 20 MG TAB PO SCH (20:48)
[2017-05-05] MEDS: AMPICILLIN/SULBACTAM 3 GM in NS 100 ML IV SCH ×4 (05:00→23:27)
[2017-05-05 05:33] LABS: % IMMATURE GRANULYOCYTES 0.6 % (0.0-1.1); ABSOLUTE IMMATURE GRANULOCYTES 0.12 10^3/uL (0.00-0.10); ADD DIFF? NO; ADD MORPH? NO; ADD SCAN? NO; ATYPICAL LYMPHOCYTE FLAG 10 (0-99); FRAGMENT RBC FLAG 0 (0-99); HEMATOCRIT 24.9 % (38.0-47.0); LEFT SHIFT FLG 20 (0-99); LIPEMIA HEMOLYSIS FLAG 80 (0-99); MEAN CELL HEMOGLOBIN 28.7 pg (27.9-34.1); MEAN CELL HEMOGLOBIN CONCENTR. 32.1 g/dL (32.4-36.7); MEAN CELL VOLUME 89.2 fL (81.5-99.8); MEAN PLATELET VOLUME 9.2 fL (8.7-11.7); PLATELET CLUMPS FLAG 10 (0-99); RED BLOOD CELL COUNT 2.79 10^6/uL (4.18-5.33); RED CELL DISTRIBUTION WIDTH 15.4 % (11.5-15.2)
[2017-05-05 05:37] LABS: PLATELET COUNT 790 10^3/uL (150-400)
[2017-05-05 05:47] LABS: ANION GAP 8 mEq/L (8-16); CALCIUM 8.3 mg/dL (8.5-10.4); CARBON DIOXIDE 31 mEq/l (22-31); CHLORIDE 103 mEq/L (97-110); CREATININE 0.6 mg/dL (0.6-1.0); GLOMERULAR FILTRATION RATE > 60; GLUCOSE 97 mg/dL (70-100); POTASSIUM 4.1 mEq/L (3.5-5.2); SODIUM 142 mEq/L (134-144)
[2017-05-05 06:10] LABS: PLATELET ESTIMATE INCREASED (ADEQ)
[2017-05-05] MEDS: guaiFENesin 600 MG TAB.ER PO SCH ×2 (09:55→21:07)
[2017-05-05] MEDS: ENOXAPARIN 40 MG/0.4 ML SYR SC SCH (09:56)
--- NOTE | 2017-05-05 11:54 | PCMIDPN ---
Assessment/Plan: # Right upper lobe necrotizing infection with associated two abscesses 4.1 x 4.8 and 3.1 x 3.5cm suspect oral origin. Persistently elevated WBC, slightly increased today - may be related to bronchoscopy yesterday. Afebrile although some mild hypotension last night requiring fluid bolus. --repeat chest x-ray tomorrow a.m. --continue on Unasyn --re-evaluate tomorrow for possible discharge # Positive blood culture: 1/4 bottles positive with isolate most suggestive of Brevibacterium. Suspect this most likely represent contaminant rather than true pathogen as this would be unusual deon for lung abscess. meds Unasyn 3gm IV q6h #[address] Brooks Subjective: Patient generally feeling well, states that she feels her BP was low last night because we gave her Lasix and had her NPO yesterday. Today she feels "well enough to go to the mall. "She also states that she is bored. Denies diarrhea, rash Objective: Vital Signs Temp Pulse Resp BP Pulse Ox 37.6 C 92 20 112/67 93 05/05/17 07:14 05/05/17 07:14 05/05/17 07:14 05/05/17 07:14 05/05/17 07:14 Microbiology 05/02/17 10:45 Gram Stain - Final Thoracic Fluid - Aspirate Body Fluid Culture - Final Staphylococcus Sp Coag Neg 05/04/17 12:00 Gram Stain - Final Lung Right Upper Lobe - Bronchial Washings 05/04/17 12:00 Mycobacterial Smear (CINDI) - Final Lung Right Upper Lobe - Bronchial Washings 05/04/17 12:00 Bronchial [place] Culture - Final Bronchial [place] - Right Upper Lobe Laboratory Results 05/05/17 05:08 05/05/17 05:08 05/04/17 05/05/17 05/06/17 05:59 05:59 05:59 Intake Total 1070 2467 Output Total 1950 1900 Balance -880 567 - Physical Exam General Appearance: alert, no apparent distress EENT: other (Fair dentition), No thrush Respiratory: crackles (Right upper lobe), No accessory muscle use Neck: supple Cardiac/Chest: regular rate, rhythm Extremities: No pedal edema Skin: No rash Neuro/Psych: alert, normal mood/affect, oriented x 3 ICD10 Worksheet Patient Problems: Problems Problem Status Onset Empyema lung Acute Severe sepsis Acute Fracture of femoral neck, right, closed Acute Tobacco abuse Acute History of breast cancer in female Chronic History of skin cancer of unknown type Chronic Migraine Chronic
--- NOTE | 2017-05-05 16:35 | HOSPPROG ---
Hospitalist Progress Note Assessment/Plan: * Necrotizing pneumonia with pulmonary abscess -suspect oral deon (anaerobe) - possible due to sedation from recent colonoscopy -no acute surgical need - continue medical management -s/p bronchoscopy - cultures pending -IV Unasyn -change to IV Invanz at discharge -repeat CXR in am * Severe sepsis (POA) * Pleural effusion - parapneumonia/exudative s/p thoracentesis * Anemia - stable -no evidence for bleeding - suspect ACD * Thrombocytosis - due to inflammation * Tobacco dependence -recently quit smoking - continue nicotine patch Subjective: Hypotensive to SBP 70s last night, got 1L IVF bolus Objective: Vital Signs Temp Pulse Resp BP Pulse Ox 36.5 C 84 16 114/80 96 05/05/17 15:46 05/05/17 15:46 05/05/17 15:46 05/05/17 15:46 05/05/17 15:46 Microbiology 05/04/17 12:00 Gram Stain - Final Lung Right Upper Lobe - Bronchial Washings 05/02/17 10:45 Gram Stain - Final Thoracic Fluid - Aspirate Body Fluid Culture - Final Staphylococcus Sp Coag Neg 05/04/17 12:00 Mycobacterial Smear (CINDI) - Final Lung Right Upper Lobe - Bronchial Washings 05/04/17 12:00 Bronchial [place] Culture - Final Bronchial [place] - Right Upper Lobe Laboratory Results 05/05/17 05:08 05/05/17 05:08 05/04/17 05/05/17 05/06/17 05:59 05:59 05:59 Intake Total 1070 2467 Output Total 1950 1900 Balance -880 567 PT 14.3 SEC (12.0-15.0) 05/02/17 05:15 INR 1.12 (0.83-1.16) 05/02/17 05:15 d/w Dr. Lau - no discharge today due to events from last night - Physical Exam Constitutional: no apparent distress, appears nourished, not in pain Cardiovascular: regular rate and rhythym, no murmur, rub, or gallop Respiratory: no respiratory distress, no rales or rhonchi, clear to auscultation Gastrointestinal: normoactive bowel sounds, soft, non-tender abdomen, no palpable masses Skin: no rashes or abrasions, no fluctuance, no induration Neurologic: AAOx3, sensation intact bilaterally Psychiatric: interacting appropriately, not anxious, not encephalopathic, thought process linear ICD10 Worksheet Patient Problems: Problems Problem Status Onset Empyema lung Acute Severe sepsis Acute Fracture of femoral neck, right, closed Acute Tobacco abuse Acute History of breast cancer in female Chronic History of skin cancer of unknown type Chronic Migraine Chronic
[2017-05-05] MEDS: NORTRIPTYLINE HCL 25 MG CAP PO SCH (21:07)
[2017-05-05] MEDS: NADOLOL 20 MG TAB PO SCH (21:07)
[2017-05-05] MEDS: NICOTINE 21 MG/24 HR PATCH TD SCH (21:09)
[2017-05-06] MEDS: AMPICILLIN/SULBACTAM 3 GM in NS 100 ML IV SCH (05:13)
[2017-05-06 05:31] LABS: % IMMATURE GRANULYOCYTES 0.6 % (0.0-1.1); ADD DIFF? NO; ADD MORPH? NO; ADD SCAN? NO; ATYPICAL LYMPHOCYTE FLAG 20 (0-99); FRAGMENT RBC FLAG 0 (0-99); HEMATOCRIT 22.9 % (38.0-47.0); HEMOGLOBIN 7.5 g/dL (12.6-16.3); LEFT SHIFT FLG 10 (0-99); LIPEMIA HEMOLYSIS FLAG 80 (0-99); MEAN CELL HEMOGLOBIN 29.5 pg (27.9-34.1); MEAN CELL HEMOGLOBIN CONCENTR. 32.8 g/dL (32.4-36.7); MEAN CELL VOLUME 90.2 fL (81.5-99.8); MEAN PLATELET VOLUME 9.1 fL (8.7-11.7); PLATELET CLUMPS FLAG 0 (0-99); PLATELET COUNT 688 10^3/uL (150-400); RED BLOOD CELL COUNT 2.54 10^6/uL (4.18-5.33); RED CELL DISTRIBUTION WIDTH 15.3 % (11.5-15.2)
[2017-05-06 05:44] LABS: ANION GAP 6 mEq/L (8-16); CALCIUM 8.1 mg/dL (8.5-10.4); CARBON DIOXIDE 32 mEq/l (22-31); CHLORIDE 104 mEq/L (97-110); CREATININE 0.7 mg/dL (0.6-1.0); GLOMERULAR FILTRATION RATE > 60; GLUCOSE 98 mg/dL (70-100); POTASSIUM 3.5 mEq/L (3.5-5.2); SODIUM 142 mEq/L (134-144)
[2017-05-06] MEDS: guaiFENesin 600 MG TAB.ER PO SCH (10:41)
[2017-05-06] MEDS: ENOXAPARIN 40 MG/0.4 ML SYR SC SCH (10:42)
--- NOTE | 2017-05-06 10:56 | PDIAF ---
- Diagnosis Diagnosis: anaerobic lung abscess Code Status: Full Code - Medication Management Discharge Medications: Medications to Continue on Transfer Nadolol [Nadolol 20 mg (*)] 40 mg PO HS 07/28/15 [Last Taken 04/23/17] Nortriptyline HCl [Pamelor 25 mg (*)] 75 mg PO HS 07/28/15 [Last Taken 04/23/17] Acetaminophen [Tylenol 325mg (*)] 650 mg PO Q6 PRN #0 tab 07/30/15 [Last Taken 04/23/17] Nicotine [Nicoderm Cq 21 mg (*)] 21 mg TD DAILY #1 box 07/30/15 [Last Taken 07/10] Herbals/Supplements -Info Only 1 ea PO HS 04/24/17 [Last Taken 04/23/17] Halfway Antibiotics: ertapenem 1gm IV daily Halfway Antibiotic Stop Date: 05/23/17 Discharge Medications: Refer to the Discharge Home Medication list for PRN reason. PICC Care - Routine: Yes - Orders Services needed: Home Care, Registered Nurse, Physical Therapy Home Care Face to Face: I certify that this patient was under my care and that I had the required [id number] encounter meeting the encounter requirements on the discharge day. My findings support the fact that the patient is homebound as defined in Home Care Face to Face Continued: CMS Chapter 7 Medicare Benefits Manual 30.1.1 , The condition of the patient is such that there exists a normal inability to leave home and consequently, leaving home would require a considerable and taxing effort. Isolation Type: None - Labs/Radiology CBC w/diff Date: 05/13/17 (Weekly Saturday) CMP Date: 05/13/17 (Weekly Saturday) Call or Fax Lab and Imaging Results to: manish johnston MD [facility] at fax [phone] - Follow Up Care Current Providers and Referrals: Mora Anna MD [Primary Care Provider] - As per Instructions Manish Johnston MD [Medical Doctor] - 05/09/17 1:00 pm
--- NOTE | 2017-05-06 11:04 | PDHOMEO2F ---
Home Oxygen Face to Face Home Orders: I certify that a physician or a nurse practitioner or physician's hr assistant has had a [id number] encounter with this patient on the date of this order due to the diagnosis listed, which relates to the primary reason the patient requires home oxygen. Alternative treatments have been tried, or considered, and deemed ineffective. It is anticipated that supplemental oxygen will result in improvement with treatment. Home oxygen qualifying diagnosis: lung abscess SpO2 on room air (%): 85 Frequency of home oxygen needed: continuous Home oxygen liters per minute: 2-3 Home oxygen delivery device: nasal cannula Concentrator: Yes E-tanks for mobility and back up: Yes If ordering portable O2, is the patient mobile in the home?: Yes I certify that, based on these findings, the home oxygen is medically necessary for this patient for the following length of time. Length of time home oxygen needed: 1 month
--- NOTE | 2017-05-06 11:06 | PDIAF ---
- Diagnosis Diagnosis: anaerobic lung abscess Code Status: Full Code - Medication Management Discharge Medications: Medications to Continue on Transfer Nadolol [Nadolol 20 mg (*)] 40 mg PO HS 07/28/15 [Last Taken 04/23/17] Nortriptyline HCl [Pamelor 25 mg (*)] 75 mg PO HS 07/28/15 [Last Taken 04/23/17] Acetaminophen [Tylenol 325mg (*)] 650 mg PO Q6 PRN #0 tab 07/30/15 [Last Taken 04/23/17] Nicotine [Nicoderm Cq 21 mg (*)] 21 mg TD DAILY #1 box 07/30/15 [Last Taken 07/10] Herbals/Supplements -Info Only 1 ea PO HS 04/24/17 [Last Taken 04/23/17] Ertapenem [INVanz] 1 gm IV ONCE #10 vial 05/06/17 [Last Taken Unknown] Government Guard Antibiotics: ertapenem 1gm IV daily Government [employer] Antibiotic Stop Date: 05/23/17 Discharge Medications: Refer to the Discharge Home Medication list for PRN reason. PICC Care - Routine: Yes - Orders Services needed: Home Care, Registered Nurse Home Care Face to Face: I certify that this patient was under my care and that I had the required [id number] encounter meeting the encounter requirements on the discharge day. My findings support the fact that the patient is homebound as defined in Home Care Face to Face Continued: CMS Chapter 7 Medicare Benefits Manual 30.1.1 , The condition of the patient is such that there exists a normal inability to leave home and consequently, leaving home would require a considerable and taxing effort. Isolation Type: None Diet Recommendation: no restrictions on diet - Labs/Radiology CBC w/diff Date: 05/13/17 (Weekly Saturday) CMP Date: 05/13/17 (Weekly Saturday) Call or Fax Lab and Imaging Results to: manish johnston MD [facility] for Infect[facility] Diseases at fax [phone] - Follow Up Care Current Providers and Referrals: Mora Anna MD [Primary Care Provider] - As per Instructions Manish Johnston MD [Medical Doctor] - 05/09/17 1:00 pm
[2017-05-06 11:23] VITALS: BP 115/77; RESP 14; TEMP 98.4
--- NOTE | 2017-05-06 11:43 | ASMTCMCOM ---
CM Note CM Note Notes: Pt is being discharged today w/ [facility] home infusion. CM spoke w/ Dori at [facility] and notified her of pts d/c. CM spoke w/ Dr. Johnston regarding d/c POC. Pt is being switched from Unisyu to Invanz. Pt will have a dose of invanz today at noon. CM sent d/c orders to [facility]. CM available for d/c needs. Date Signed: 05/06/2017 11:43 AM Electronically Signed By:TRESA Gutierrez
[2017-05-06] MEDS ORDERED: ERTAPENEM 1 GM in NS 100 ML IV ONE (12:00)
[2017-05-06 13:12] VITALS: PULSE 86; O2SAT 84
--- NOTE | 2017-05-06 15:37 | PCMIDPN ---
Assessment/Plan: Assessment/Plan: * Necrotizing right upper lobe pneumonia with concomitant lung abscess: Overall continued slow clinical improvement. Status post bronchoscopy over the weekend with culture showing only growth of yeast. Persistent increase in white blood cell count which may be slow to resolve. Will transition Unasyn to ertapenem for outpatient administration with at least 4 week course of therapy. Plan CT of chest prior to discontinuing therapy as this will help gauge ultimate duration of IV antibiotics. If fails to respond IV antibiotics, may need to consider surgical management or less likely percutaneous drainage with risks as previously outlined. Thoracentesis has grown coag-negative staph which I suspect is a contaminant based on cell count and other pleural fluid studies. * Positive blood culture: 1/4 bottles positive with isolate most suggestive of Brevibacterium. Suspect this most likely represent contaminant rather than true pathogen as this would be unusual deon for lung abscess. Time spent, greater than 35 minutes, of which greater than half was spent in education/counseling/coordination of care related to continued treatment of necrotizing pneumonia/lung abscess and plan of care including outpatient IV antibiotics. 05/06/17 15:33 05/06/17 15:38 Subjective: Patient continues to feel like she is slowly improving. Some productive cough present. Bronchoscopy findings noted. Objective: Vital Signs Temp Pulse Resp BP Pulse Ox 36.9 C 86 14 115/77 84 L 05/06/17 11:21 05/06/17 13:12 05/06/17 11:21 05/06/17 11:21 05/06/17 13:12 Microbiology 05/04/17 12:00 Gram Stain - Final Lung Right Upper Lobe - Bronchial Washings Bronchial Washings Culture - Final 05/02/17 10:45 Gram Stain - Final Thoracic Fluid - Aspirate Body Fluid Culture - Final Staphylococcus Sp Coag Neg Laboratory Results 05/06/17 05:15 05/06/17 05:15 05/05/17 05/06/17 05/07/17 05:59 05:59 05:59 Intake Total 2467 50 Output Total 1900 350 Balance 567 -300 Unasyn # 11 BAL with growth of yeast Pleural fluid with growth of rare coagulase-negative Staphylococcus Blood cultures 05/04/2017 no growth - Physical Exam General Appearance: alert, no apparent distress EENT: No thrush, No conjunctival petechiae Respiratory: crackles (Right upper lung field) Cardiac/Chest: regular rate, rhythm Abdomen: non-tender, No distended ICD10 Worksheet Patient Problems: Problems Problem Status Onset Empyema lung Acute Severe sepsis Acute Fracture of femoral neck, right, closed Acute Tobacco abuse Acute History of breast cancer in female Chronic History of skin cancer of unknown type Chronic Migraine Chronic
--- NOTE | 2017-05-07 05:19 | GDS ---
[f rep st] DISCHARGE SUMMARY DISCHARGE DIAGNOSES: 1. Necrotizing pneumonia with pulmonary abscess. 2. Severe sepsis present on admission. 3. Parapneumonic exudative pleural effusion, status post thoracentesis. 4. Anemia of chronic disease. 5. Thrombocytosis due to severe inflammation. 6. Tobacco dependence. HISTORY: The patient is a 66-year-old female who presented with a pulmonary abscess and a necrotizin g pneumonia. This is suspected to be anaerobic from oral deon. She did have recent sedation for a colonoscopy which may have been the etiology. She underwent bronchoscopy, and cultures are pending. She was seen here with Infectious Disease. She was treated with IV Unasyn throughout her hospitaliz ation. Has had slow improvement, although she has quite a ways to go. She will be discharged on IV Invanz and close outpatient followup with Infectious Disease. They will repeat CT scan of the chest as an outpatient. She was seen here in consultation with Dr. Rodríguez. There is no acute surgical need at this time, but he would also like to see her in followup. She underwent thoracentesis for p leural effusion which was exudative, but not empyema. Anemia and thrombocytosis were significant, bu t stable at discharge. Her leukocytosis is slowly improving, starting at 30 on presentation, down to 17 at discharge. This is expected to have a slow resolution. DISCHARGE MEDICATIONS: Please see computerized record for full detailed list. New medications: Inv anz 1 g IV daily until discontinued by Infectious Disease. ADDITIONAL DISCHARGE INSTRUCTIONS: Follow up with Dr. Johnston May 09 at 1 p.m. Greater than 30 minutes' time was spent arranging this discharge. Patient was seen, examined by me evangelist irwin the day of discharge. [id number]/[facility]
--- NOTE | 2017-05-07 09:43 | ASDISCHSUM ---
Discharge Information Plan Status:IV ABX/Infusion Medically Cleared to Leave:05/05/2017 Discharge Date:05/06/2017 04:30 PM CM D/C Disposition: ADT D/C Disposition:Home Health Service Projected Discharge Date:05/06/2017 11:00 AM Transportation at D/C: Discharge Delay Reason: Follow-Up Date:05/06/2017 11:00 AM Discharge Slot: Final Diagnosis: Placement Information Referral Type:Home Infusion Referral ID:[id number] Provider Name:[facility] [place] ([facility] Address 1:[address] Address 2: City:[place] Selection Factors: State:[place] Patient Contact Information Contact Name:REGINAHERNAN Relationship:Daughter Address:[address] [place] [address] Work Phone: [facility]:[place] Alternate Phone: [facility]/Zip Code:[place] [address] Email: Financial Information Financial Class:[facility] Primary Plan Desc:[facility] Primary Plan Number:[id number] Secondary Plan Desc: Secondary Plan Number: Assessment Information [facility] CM Progress Note CM Note CM Note Notes: Pt cleared by PT/OT, anticipate will dc home w/support of daughter who lives with her when medically stable. CM available for any changes. Date Signed: 04/25/2017 04:56 PM Electronically Signed By:Yelitza Chaney RN [facility] CM Progress Note CM Note CM Note Notes: Spoke w/ re; home IV infusion. Pt will need home IV abx, referral sent and Dori at [facility] notified. Pt has no other needs. Current Discharge Plan: Pt will dc home w/[facility] for home IV abx. Date Signed: 04/26/2017 11:19 AM Electronically Signed By:Yelitza Chaney RN [facility] CM Progress Note CM Note CM Note Notes: Reviewed chart for discharge plan, pt's progress. Per MD notes, pt may require bronch in AM 04/28/17; PICC line placed today; awaiting blood culture organism. [facility] for Dori at [facility] to follow up on referral; awaiting call back. CM will cont to follow. Current Discharge Plan: Home w/ Home Health Care and IV Infusion Services Date Signed: 04/27/2017 05:03 PM Electronically Signed By:Margot Vásquez RN [facility] CM Progress Note CM Note CM Note Notes: CM spoke w/ Dori from [facility] and they are able to follow pt once she is ready to d/c. CM sent [facility] updates via [employer]. CM to follow. Date Signed: 04/30/2017 03:22 PM Electronically Signed By:TRESA Gutierrez [facility] CM Progress Note CM Note CM Note Notes: Dc date unclear, possible sx consult. Dori at [facility] notified. Current DC Plan: Dc home w/IV anbiotics ([facility]) Date Signed: 05/03/2017 04:33 PM Electronically Signed By:Yelitza Chaney RN [facility] MELANIE Progress Note CM Note CM Note Notes: Spoke w/, pt likely to dc tomorrow with [facility] home infusion, [facility] notified and pt aware. Date Signed: 05/04/2017 03:50 PM Electronically Signed By:Yelitza Chaney RN [facility] CM Progress Note CM Note CM Note Notes: Pt is being discharged today w/ [facility] home infusion. CM spoke w/ Dori at [facility] and notified her of pts d/c. CM spoke w/ Dr. Johnston regarding d/c POC. Pt is being switched from Unisyu to Invanz. Pt will have a dose of invanz today at noon. CM sent d/c orders to [facility]. CM available for d/c needs. Date Signed: 05/06/2017 11:43 AM Electronically Signed By:TRESA Gutierrez Intervention Information Intervention Type:*Incorrect Registration Date of Service:04/25/2017 09:15 AM Patient Type:Observation Staff Member:DEDE Amanda, Francia Hours: Discipline: Severity: Comment:
== END 2017-05-06 16:30 | disposition home health service (06) | DRG 871 ==
LOC: OBSVTOIN 19:59 → F3E 21:21
PROVIDERS: ADMIT Family Medicine; ATTEND Internal Medicine
PROC: 02HV33Z Insertion of Infusion Device into Superior Vena Cava, Percutaneous Approach (ICD-10-PCS; 2017-04-27)
PROC: 0B9N3ZX Drainage of Right Pleura, Percutaneous Approach, Diagnostic (ICD-10-PCS; 2017-05-02)
PROC: BB4BZZZ Ultrasonography of Pleura (ICD-10-PCS; 2017-05-02)
PROC: 0BB48ZX Excision of Right Upper Lobe Bronchus, Via Natural or Artificial Opening Endoscopic, Diagnostic (ICD-10-PCS; principal; 2017-05-04 11:00)
PROC: 0B948ZX Drainage of Right Upper Lobe Bronchus, Via Natural or Artificial Opening Endoscopic, Diagnostic (ICD-10-PCS; principal; 2017-05-04 11:00)
DX: A41.1 Sepsis due to other specified staphylococcus (principal); R65.20 Severe sepsis without septic shock; J85.1 Abscess of lung with pneumonia; J85.0 Gangrene and necrosis of lung; J91.8 Pleural effusion in other conditions classified elsewhere; E87.1 Hypo-osmolality and hyponatremia; R60.9 Edema, unspecified; D64.9 Anemia, unspecified; D47.3 Essential (hemorrhagic) thrombocythemia; M25.551 Pain in right hip; F17.210 Nicotine dependence, cigarettes, uncomplicated; Z85.3 Personal history of malignant neoplasm of breast; Z80.1 Family history of malignant neoplasm of trachea, bronchus and lung; Z23 Encounter for immunization; Z96.1 Presence of intraocular lens
CPT/HCPCS: 86738-90; 87449-90; 96365; 97161-GP; 97165-GO; C1751; G0008; J0171; J0295; J1170; J1335; J1650; J1940; J2250; J2543; J3010; Q9967

== ENCOUNTER → 2017-04-24 | Outpatient (CLI) | payer OTHER | LOC: BMCIMAGING 15:41 | PROVIDERS: ATTEND Nurse Practitioner Adult Health | DX: J98.4 Other disorders of lung (principal) ==

== ENCOUNTER → 2017-04-24 | Outpatient (CLI) | payer OTHER ==
[~2017-04-24] MED LIST: IOPAMIDOL (ISOVUE-300) 100 ML BTL ONE
== END ==
LOC: FIMAGING 17:48
PROVIDERS: ATTEND Nurse Practitioner Adult Health
DX: J98.4 Other disorders of lung (principal); R59.0 Localized enlarged lymph nodes; I77.1 Stricture of artery
CPT/HCPCS: Q9967

== ENCOUNTER → 2017-05-23 | Outpatient (CLI) | payer OTHER | LOC: FIMAGING 16:29 | PROVIDERS: ATTEND Internal Medicine Infectious Disease | DX: J85.0 Gangrene and necrosis of lung (principal); J85.1 Abscess of lung with pneumonia ==

== ENCOUNTER → 2017-07-19 | Outpatient (CLI) | payer OTHER | LOC: FIMAGING 13:01 | PROVIDERS: ATTEND Internal Medicine Infectious Disease | DX: J18.1 Lobar pneumonia, unspecified organism (principal); J98.11 Atelectasis ==